=== PATIENT | female | born 1985 | race Caucasian/White ===

== ENCOUNTER 2020-08-10 12:45 | Inpatient (IN) | payer SELFPAY, MEDICAID ==
[2020-08-10] MEDS ORDERED: SODIUM CHLORIDE 0.9% 1000 ML 1,000 ML IV ONE ×2 (13:33→15:57)
[2020-08-10] MEDS ORDERED: ONDANSETRON 4 MG/2 ML INJ IV ONE (13:33)
[2020-08-10] MEDS ORDERED: KETOROLAC 30 MG/1 ML INJ IV ONE (13:34)
--- NOTE | 2020-08-10 13:44 | Emergency Department Report ---
HPI <MAXIMILIAN SCOTT Shani - Last Filed: 08/10/20 18:15> - [facility] HPI: This is a 35-year-old female who presents to the emergency department with complaint of nausea with vomiting, body aches, and a fever despite treatment with antipyretics. The patient was at [place] emergency department on 08/06 for some upper respiratory type symptoms and was tested for COVID-19 at that time and discharged home. The results came back 2 days later as positive. Patient says that she has been taking Tylenol, ibuprofen, and took a dose of Coricidin but it has not helped with the fever. The patient presents with a fever of 103 F. She took Tylenol a few hours prior to presentation today and last took ibuprofen yesterday. She has a past medical history that includes hypertension, asthma, fibromyalgia. No recent travel or sick contacts at home. <MENA MEJIA S - Last Filed: 08/11/20 06:04> - General Chief Complaint: Nausea/Vomiting/Diarrhea Time Seen by Provider: 08/10/20 13:35 ED Past Medical Hx - Past Medical History Hx Hypertension: Yes Hx Asthma: Yes - Social History Smoking Status: Never Smoker Substance Use Type: None <MENA MEJIA S - Last Filed: 08/11/20 06:04> ED Review of Systems ROS: Stated complaint: COVID, VOMITING NAUSEA Other details as noted in HPI <MAXIMILIAN SCOTT Shani - Last Filed: 08/10/20 18:15> ROS: Stated complaint: COVID, VOMITING NAUSEA Other details as noted in HPI Constitutional: chills, fever Eyes: denies: eye pain, vision change ENT: denies: ear pain, throat pain Respiratory: cough, shortness of breath Cardiovascular: denies: chest pain, palpitations Gastrointestinal: abdominal pain, nausea, vomiting Genitourinary: denies: dysuria, discharge Musculoskeletal: myalgia. denies: joint swelling Skin: denies: rash, lesions Neurological: denies: weakness, numbness <MENA MEJIA S - Last Filed: 08/11/20 06:04> Physical Exam - Physical Exam Vital Signs: Vital Signs 08/10/20 08/10/20 08/10/20 13:17 14:39 17:13 Temperature 103.2 F H 100.0 F H Pulse Rate 98 H 87 72 Respiratory 20 18 21 Rate Blood Pressure 121/71 Blood Pressure 100/61 113/66 [Left] O2 Sat by Pulse 93 98 99 Oximetry <MAXIMILIAN SCOTT - Last Filed: 08/10/20 18:15> - Physical Exam Vital Signs: Vital Signs 08/10/20 13:17 Temperature 103.2 F H Pulse Rate 98 H Respiratory 20 Rate Blood Pressure 121/71 O2 Sat by Pulse 93 Oximetry Physical Exam: GENERAL: The patient is well-developed well-nourished. HENT: Normocephalic. Atraumatic. Patient has moist mucous membranes. EYES: Extraocular motions are intact. NECK: Supple. Trachea is midline. CHEST/LUNGS: Clear to auscultation. There is no respiratory distress noted. HEART/CARDIOVASCULAR: Regular. There is mild tachycardia. There is no murmur. ABDOMEN: Abdomen is soft, nontender. Patient has normal bowel sounds. Obese habitus. SKIN: Skin is warm and dry. NEURO: The patient is awake, alert, and oriented. The patient is cooperative. The patient has no focal neurologic deficits. Normal speech. MUSCULOSKELETAL: There is no tenderness or deformity. There is no limitation range of motion. <MENA MEJIA S - Last Filed: 08/11/20 06:04> ED Course Vital Signs 08/10/20 08/10/20 08/10/20 13:17 14:39 17:13 Temperature 103.2 F H 100.0 F H Pulse Rate 98 H 87 72 Respiratory 20 18 21 Rate Blood Pressure 121/71 Blood Pressure 100/61 113/66 [Left] O2 Sat by Pulse 93 98 99 Oximetry - Reevaluation(s) Reevaluation #1: 08/10/20 18:33 Patient's 2-minute walking SPO2 dropped to 89-91% on room air. Will admit the patient to the hospital for further management <MAXIMILIAN SCOTT - Last Filed: 08/10/20 18:15> Vital Signs 08/10/20 13:17 Temperature 103.2 F H Pulse Rate 98 H Respiratory 20 Rate Blood Pressure 121/71 O2 Sat by Pulse 93 Oximetry <MEAN MEJIA - Last Filed: 08/11/20 06:04> ED Medical Decision Making - Lab Data Result diagrams: 08/10/20 14:21 08/10/20 14:21 <MAXIMILIAN SCOTT - Last Filed: 08/10/20 18:15> - Lab Data Result diagrams: 08/10/20 14:21 08/10/20 18:34 - Radiology Data Radiology results: image reviewed interpreted by me: Chest x-ray does not show any acute process. There are no pleural effusions, obvious pneumonia and there is no pneumothorax. No widened mediastinum. Abdominal x-ray shows nonspecific nonobstructive bowel gas. No free air. - Medical Decision Making This patient presents to the emergency department with a complaint of fever, nausea, vomiting, occasional shortness of breath and cough. She is known to be Covid positive since 08/04. Chest x-ray does not show any obvious pneumonia, pleural effusions, pneumothorax, widened mediastinum. Abdominal x-ray shows nonspecific nonobstructive bowel gas. I am waiting for all of the labs to return, but the metabolic panel is mostly unremarkable except for slight elevation in the AST level. So far the patient has been given a liter of IV fluid, a dose of Zofran, and a dose of Toradol. The patient will receive another liter of IV fluid and will be given a dose of Reglan. This patient will be signed out to my colleague, Dr. Scott, to continue resuscitation and assist with disposition. 08/11/20 6AM: In reviewing the rest of the chart, I can see that the patient did not pass the 2-minute oxygen ambulation test as her pulse ox dropped down to as low as 88%. The patient was admitted to the hospital for further evaluation and treatment. <MENA MEJIA S - Last Filed: 08/11/20 06:04> Critical care attestation.: If time is entered above; I have spent that time in minutes in the direct care of this critically ill patient, excluding procedure time. <MAXIMILIAN SCOTT - Last Filed: 08/10/20 18:15> Critical Care Time: No Critical care attestation.: If time is entered above; I have spent that time in minutes in the direct care of this critically ill patient, excluding procedure time. <MENA MEJIA - Last Filed: 08/11/20 06:04> ED Disposition Is pt being admited?: Yes Does the pt Need Aspirin: No Time of Disposition: 18:34 (Hospitalist notified (Dr. Benitez)) <MAXIMILIAN SCOTT - Last Filed: 08/10/20 18:15> Is pt being admited?: Yes <MENA MEJIA - Last Filed: 08/11/20 06:04> Clinical Impression: COVID-19, Viral syndrome, Nausea & vomiting, Hypoxia Disposition: [facility]-09 OP ADMIT IP TO THIS HOSP Condition: Fair
[2020-08-10 15:03] LABS: Alanine Aminotransferase 32 units/L (7-56); Albumin 3.6 g/dL (3.9-5); BUN/Creatinine Ratio 11; Blood Urea Nitrogen 9 mg/dL (7-17); Calcium 8.9 mg/dL (8.4-10.2); Hemolysis Index 14
[2020-08-10 15:05] LABS: Hematocrit 37.8 % (30.3-42.9); Mean Corpuscular HGB Conc 34 % (30-34); Mean Corpuscular Volume 91 fl (79-97); Red Blood Count 4.15 M/mm3 (3.65-5.03); Red Cell Distribution Width 13.5 % (13.2-15.2)
[2020-08-10] MEDS ORDERED: METOCLOPRAMIDE 10 MG/2 ML INJ IV ONE (15:57)
--- NOTE | 2020-08-10 16:12 | XRay Report ---
Abdominal series with chest x-ray one view HISTORY: Cough, abdominal pain COMPARISON: None. IMPRESSION: Single view of the chest demonstrates clear lungs. Heart size is at the upper limits of n ormal. No infiltrate, pleural fluid or pneumothorax. Supine and upright views the abdomen demonstrate an unremarkable intestinal gas pattern. No evidence for obstruction or free air. No pathologic calcifications are detected. Signer Name: El Godinez Jr, MD Signed: 08/10/2020 4:08 PM Workstation Name: [id number]
[2020-08-10] MEDS ORDERED: ACETAMINOPHEN 500 MG TAB PO ONE (16:57)
[2020-08-10 16:59] LABS: Total Cells Counted 100
[2020-08-10 17:00] LABS: Anisocytosis RARE; Hypochromasia Few; Platelet Clumps Rare
[2020-08-10 17:02] LABS: Platelet Count 186 K/mm3 (140-440)
[2020-08-10] MEDS ORDERED: dexAMETHasone 20 MG/5 ML VIAL IV ONE (18:08)
[2020-08-10] MEDS ORDERED: cefTRIAXone/NS 1 GM/50 ML 1 GM/50 ML BAG IV ONE (18:09)
[2020-08-10] MEDS ORDERED: AZITHROMYCIN/NS 500 MG/250 ML 500 MG/250 ML BAG IV ONE (18:09)
[2020-08-10 18:15] LABS: Bacteria,Urine 1+ /HPF (Negative); Bilirubin,Urine NEG (Negative); Blood,Urine LG (Negative); Color,Urine Yellow (Yellow); Mucus,Urine FEW /HPF; Protein,Urine <15 mg/dL mg/dL (Negative); Urobilinogen,Urine < 2.0 mg/dL (<2.0)
[2020-08-10 19:10] LABS: C-Reactive Protein 2.2 mg/dL (0.00-1.30)
[2020-08-10] MEDS ORDERED: MORPHINE 2 MG/1 ML INJ IV PRN (21:38)
--- NOTE | 2020-08-10 21:58 | History and Physical Report ---
History of Present Illness Date of examination: 08/10/20 Date of admission: 08/10/20 18:34 Chief complaint: Fever body aches and nausea vomiting for 4 days High temperature 103 prior to admission to the emergency room History of present illness: 35-year-old female with past medical history of hypertension and asthma comes to the emergency room because of nausea vomiting body aches and fever for the last 3 to 4 days. Patient went to [place] emergency department and was treated as upper respiratory symptoms with antibiotics. Patient was stable tested for COVID-19 which became positive later. Here the patient presents with a fever of 103 and she took Tylenol, a few hours before arrival in the emergency room. She took ibuprofen yesterday. No recent travels. Patient is not vaccinated. Exposure to coronavirus present. In the emergency room patient is to 88% on ambulation. No chest pain. Some shortness of breath present. No diaphoresis. Covid test came positive about days ago. - Past Medical History Hx Hypertension: Yes Hx Asthma: Yes Surgical history n/a Family history HTN - Social History Smoking Status: Never Smoker Substance Use Type: None <MENA MEJIA - Last Filed: 08/10/20 16:00> Review of Systems ROS: Constitutional fever and generalized body aches Neck no neck stiffness no lymph gland enlargement Chest and lungs no shortness of breath cough or wheezing CVS no chest pain no diaphoresis no palpitations GI no nausea no vomiting no diarrhea Genitourinary system nausea vomiting. Musculoskeletal system no muscle pains no joint pains [employer] no syncope no seizures Skin no rash no itching Psychiatric no depression no homicidal or suicidal tendencies Hematologic no lymphedema or bruising Endocrine no polydipsia no polyuria no cold intolerance no heat intolerance Positive Covid test 08/06/2020 Medications and Allergies Allergies Allergy/AdvReac Type Severity Reaction Status Date / Time morphine Allergy Hives Verified 08/10/20 13:24 Exam - Constitutional Vitals: Temp Pulse Resp BP Pulse Ox 99.9 F H 75 18 108/70 98 08/10/20 21:29 08/10/20 21:29 08/10/20 21:29 08/10/20 21:29 08/10/20 21:29 General appearance: Present: no acute distress, well-nourished - EENT Eyes: Present: PERRL ENT: hearing intact, clear oral mucosa - Neck Neck: Present: supple, normal ROM - Respiratory Respiratory effort: normal Respiratory: bilateral: CTA, rhonchi - Cardiovascular Heart rate: 78 Rhythm: regular Heart Sounds: Present: S1 & S2. Absent: rub, click - Extremities Extremities: pulses symmetrical, No edema Peripheral Pulses: within normal limits - Abdominal General gastrointestinal: Present: soft, non-tender, non-distended, normal bowel sounds Female genitourinary: Present: normal - Integumentary Integumentary: Present: clear, warm, dry - Musculoskeletal Musculoskeletal: gait normal, strength equal bilaterally - Psychiatric Psychiatric: appropriate mood/affect, intact judgment & insight - Neurologic Neurologic: CNII-XII intact, moves all extremities - Allied Health Allied health notes reviewed: nursing, case management Results - Labs CBC & Chem 7: 08/10/20 14:21 08/10/20 18:34 Labs: Laboratory Last Values WBC 5.1 K/mm3 (4.5-11.0) 08/10/20 14:21 RBC 4.15 M/mm3 (3.65-5.03) 08/10/20 14:21 Hgb 13.0 gm/dl (10.1-14.3) 08/10/20 14:21 Hct 37.8 % (30.3-42.9) 08/10/20 14:21 MCV 91 fl (79-97) 08/10/20 14:21 MCH 31 pg (28-32) 08/10/20 14:21 MCHC 34 % (30-34) 08/10/20 14:21 RDW 13.5 % (13.2-15.2) 08/10/20 14:21 Plt Count 186 K/mm3 (140-440) 08/10/20 14:21 Add Manual Diff Complete 08/10/20 14:21 Total Counted 100 08/10/20 14:21 Seg Neuts % (Manual) 62.0 % (40.0-70.0) 08/10/20 14:21 Lymphocytes % (Manual) 26.0 % (13.4-35.0) 08/10/20 14:21 Monocytes % (Manual) 12.0 % (0.0-7.3) H 08/10/20 14:21 Nucleated RBC % 2.0 % (0.0-0.9) H 08/10/20 14:21 Seg Neutrophils # Man 0.0 K/mm3 (1.8-7.7) L 08/10/20 14:21 Band Neutrophils # 0.0 K/mm3 08/10/20 14:21 Lymphocytes # (Manual) 0.0 K/mm3 (1.2-5.4) L 08/10/20 14:21 Abs React Lymphs (Man) 0.0 K/mm3 08/10/20 14:21 Monocytes # (Manual) 0.0 K/mm3 (0.0-0.8) 08/10/20 14:21 Eosinophils # (Manual) 0.0 K/mm3 (0.0-0.4) 08/10/20 14:21 Basophils # (Manual) 0.0 K/mm3 (0.0-0.1) 08/10/20 14:21 Metamyelocytes # 0.0 K/mm3 08/10/20 14:21 Myelocytes # 0.0 K/mm3 08/10/20 14:21 Promyelocytes # 0.0 K/mm3 08/10/20 14:21 Blast Cells # 0.0 K/mm3 08/10/20 14:21 WBC Morphology Not Reportable 08/10/20 14:21 Hypersegmented Neuts Not Reportable 08/10/20 14:21 Hyposegmented Neuts Not Reportable 08/10/20 14:21 Hypogranular Neuts Not Reportable 08/10/20 14:21 Smudge Cells Not Reportable 08/10/20 14:21 Toxic Granulation Not Reportable 08/10/20 14:21 Toxic Vacuolation Not Reportable 08/10/20 14:21 Dohle Bodies Not Reportable 08/10/20 14:21 Pelger-Huet Anomaly Not Reportable 08/10/20 14:21 Geraldo Rods Not Reportable 08/10/20 14:21 Platelet Estimate Not Reportable 08/10/20 14:21 Clumped Platelets Rare 08/10/20 14:21 Plt Clumps, EDTA Not Reportable 08/10/20 14:21 Large Platelets Not Reportable 08/10/20 14:21 Giant Platelets Not Reportable 08/10/20 14:21 Platelet Satelliting Not Reportable 08/10/20 14:21 Plt Morphology Comment Not Reportable 08/10/20 14:21 RBC Morphology Not Reportable 08/10/20 14:21 Dimorphic RBCs Not Reportable 08/10/20 14:21 Polychromasia Not Reportable 08/10/20 14:21 Hypochromasia Few 08/10/20 14:21 Poikilocytosis Not Reportable 08/10/20 14:21 Anisocytosis Rare 08/10/20 14:21 Microcytosis Rare 08/10/20 14:21 Macrocytosis Not Reportable 08/10/20 14:21 Spherocytes Not Reportable 08/10/20 14:21 Pappenheimer Bodies Not Reportable 08/10/20 14:21 Sickle Cells Not Reportable 08/10/20 14:21 Target Cells Not Reportable 08/10/20 14:21 Tear Drop Cells Not Reportable 08/10/20 14:21 Ovalocytes Not Reportable 08/10/20 14:21 Helmet Cells Not Reportable 08/10/20 14:21 [place] Bodies Not Reportable 08/10/20 14:21 [place] Rings Not Reportable 08/10/20 14:21 [place] Cells Not Reportable 08/10/20 14:21 Bite Cells Not Reportable 08/10/20 14:21 Crenated Cell Not Reportable 08/10/20 14:21 Elliptocytes Not Reportable 08/10/20 14:21 Acanthocytes (Spur) Not Reportable 08/10/20 14:21 Rouleaux Not Reportable 08/10/20 14:21 Hemoglobin C Crystals Not Reportable 08/10/20 14:21 Schistocytes Not Reportable 08/10/20 14:21 Malaria parasites Not Reportable 08/10/20 14:21 Ignacio Bodies Not Reportable 08/10/20 14:21 Hem Pathologist Commnt No 08/10/20 14:21 D-Dimer 653.51 ng/mlDDU (0-234) H 08/10/20 18:34 Sodium 132 mmol/L (137-145) L 08/10/20 14:21 Potassium 4.6 mmol/L (3.6-5.0) 08/10/20 14:21 Chloride 95.9 mmol/L (98-107) L 08/10/20 14:21 Carbon Dioxide 25 mmol/L (22-30) 08/10/20 14:21 Anion Gap 16 mmol/L 08/10/20 14:21 BUN 9 mg/dL (7-17) 08/10/20 14:21 Creatinine 0.8 mg/dL (0.6-1.2) 08/10/20 14:21 Estimated GFR > 60 ml/min 08/10/20 14:21 BUN/Creatinine Ratio 11 % 08/10/20 14:21 Glucose 77 mg/dL (65-100) 08/10/20 18:34 Calcium 8.9 mg/dL (8.4-10.2) 08/10/20 14:21 Ferritin 143.9 ng/mL (10.0-200.0) 08/10/20 18:34 Total Bilirubin 0.20 mg/dL (0.1-1.2) 08/10/20 14:21 AST 59 units/L (5-40) H 08/10/20 14:21 ALT 32 units/L (7-56) 08/10/20 14:21 Alkaline Phosphatase 51 units/L (35-129) 08/10/20 14:21 Lactate Dehydrogenase 340 units/L (91-180) H 08/10/20 18:34 C-Reactive Protein 2.20 mg/dL (0.00-1.30) H 08/10/20 18:34 Total Protein 6.5 g/dL (6.3-8.2) 08/10/20 14:21 Albumin 3.6 g/dL (3.9-5) L 08/10/20 14:21 Albumin/Globulin Ratio 1.2 % 08/10/20 14:21 Lipase 27 units/L (13-60) 08/10/20 14:21 HCG, Qual Negative (Negative) 08/10/20 14:21 Urine Color Yellow (Yellow) 08/10/20 Unknown Urine Turbidity Slightly-cloudy (Clear) 08/10/20 Unknown Urine pH 6.0 (5.0-7.0) 08/10/20 Unknown Ur Specific [place] 1.010 (1.003-1.030) 08/10/20 Unknown Urine Protein <15 mg/dl mg/dL (Negative) 08/10/20 Unknown Urine Glucose (UA) Neg mg/dL (Negative) 08/10/20 Unknown Urine Ketones Tr mg/dL (Negative) 08/10/20 Unknown Urine Blood Lg (Negative) 08/10/20 Unknown Urine Nitrite Neg (Negative) 08/10/20 Unknown Urine Bilirubin Neg (Negative) 08/10/20 Unknown Urine Urobilinogen < 2.0 mg/dL (<2.0) 08/10/20 Unknown Ur Leukocyte Esterase Sm (Negative) 08/10/20 Unknown Urine WBC (Auto) 3.0 /HPF (0.0-6.0) 08/10/20 Unknown Urine RBC (Auto) 7.0 /HPF (0.0-6.0) 08/10/20 Unknown U Epithel Cells (Auto) 4.0 /HPF (0-13.0) 08/10/20 Unknown Urine Bacteria (Auto) 1+ /HPF (Negative) 08/10/20 Unknown Urine Mucus Few /HPF 08/10/20 Unknown Microbiology: Microbiology 08/10/20 18:37 Peripheral/Venous Blood Culture - Preliminary Culture in Progress 08/10/20 18:34 Peripheral/Venous Blood Culture - Preliminary Culture in Progress - Imaging and Cardiology Imaging and Cardiology: Chest x-ray Single view of the chest demonstrates clear lungs Heart size is normal upper limits no infiltrate pleural fluid or pneumothorax Assessment and Plan Advance Directives: Yes (Full code) VTE prophylaxis?: Chemical Plan of care discussed with patient/family: Yes - Patient Problems (1) Respiratory failure with hypoxia Current Visit: Yes Status: Acute Qualifiers: Chronicity: acute Qualified Code(s): J96.01 - Acute respiratory failure with hypoxia Plan to address problem: Especially on ambulation Sats are 88% on ambulation 2 L nasal cannula oxygen to continue (2) COVID-19 Current Visit: Yes Status: Acute Plan to address problem: Patient initiated on IV Zithromax and IV Rocephin and IV Decadron Repeat coronavirus PCR ID consult if PCR is positive (3) Viral syndrome Current Visit: Yes Status: Acute Plan to address problem: Symptomatic treatment (4) Hypertension Current Visit: Yes Status: Chronic Qualifiers: Hypertension type: primary hypertension Qualified Code(s): I10 - Essential (primary) hypertension Plan to address problem: Continue antihypertensives and adjust medications as necessary (5) Asthma Current Visit: Yes Status: Inactive Plan to address problem: Bronchodilators as necessary (6) DVT prophylaxis Current Visit: Yes Status: Acute Plan to address problem: On Lovenox and GI prophylaxis
[2020-08-10] MEDS: FAMOTIDINE 20 MG/2 ML INJ IV SCH (23:19)
[2020-08-11] MEDS: oxyCODONE /ACETAMINOPHEN 5-325MG TAB PO PRN (06:14)
[2020-08-11 07:02] LABS: Hematocrit 37.5 % (30.3-42.9); Hemoglobin 12.6 gm/dl (10.1-14.3); Mean Corpuscular HGB Conc 34 % (30-34); Mean Corpuscular Volume 91 fl (79-97); Platelet Count 188 K/mm3 (140-440); Red Blood Count 4.14 M/mm3 (3.65-5.03); Red Cell Distribution Width 13.4 % (13.2-15.2)
[2020-08-11 07:20] LABS: Alanine Aminotransferase 39 units/L (7-56); Albumin 3.6 g/dL (3.9-5); BUN/Creatinine Ratio 13; Blood Urea Nitrogen 10 mg/dL (7-17); Calcium 8.6 mg/dL (8.4-10.2); Hemolysis Index 1
[2020-08-11] MEDS: FAMOTIDINE 20 MG/2 ML INJ IV SCH ×2 (09:12→21:41)
[2020-08-11] MEDS: ENOXAPARIN 40 MG/0.4 ML INJ SUB-Q SCH (09:12)
--- NOTE | 2020-08-11 09:28 | Progress Note ---
Subjective Date of service: 08/11/20 Interval history: Fever body aches and nausea vomiting for 4 days High temperature 103 prior to admission to the emergency room History of present illness: 35-year-old female with past medical history of hypertension and asthma comes to the emergency room because of nausea vomiting body aches and fever for the last 3 to 4 days. Patient went to [place] emergency department and was treated as upper respiratory symptoms with antibiotics. Patient was stable tested for COVID-19 which became positive later. Here the patient presents with a fever of 103 and she took Tylenol, a few hours before arrival in the emergency room. She took ibuprofen yesterday. No recent travels. Patient is not vaccinated. Exposure to coronavirus present. In the emergency room patient is to 88% on ambulation. No chest pain. Some shortness of breath present. No diaphoresis. Covid test came positive about days ago. 08/11 patient is alert and oriented, not in any distress, no specific complaints except dry cough, fever trending down and she is afebrile this morning, denies shortness of breath, denies headache, dizziness, chest pain, nausea or abdominal pain. Lab results reviewed Assessment and plan COVID-19 infection Chest x-ray reviewed Inflammatory markers reviewed Continue Decadron and remdesivir Continue empiric IV antibiotics Procalcitonin ordered-results pending Start Lovenox for DVT prophylaxis Proning as able Hypoxia Continue oxygen via nasal cannula Oxygen saturation 95 to 98% Leukopenia-differential pending Likely secondary to viral induced Monitor CBC We will request ID consult Hyponatremia Improved Fever Trending down well and this morning she is afebrile Hypertension Fair Continue present medications History of asthma-not in exacerbation Continue albuterol inhaler as needed Morbid obesity Counseling on diet, weight loss and exercise was done Objective - Constitutional Vitals: Vital Signs - 12hr 08/10/20 08/11/20 21:29 05:01 Temperature 99.9 F H 97.7 F Pulse Rate 75 Respiratory 18 18 Rate Blood Pressure 108/70 105/67 O2 Sat by Pulse 98 Oximetry General appearance: Present: no acute distress, obese - EENT Eyes: PERRL, EOM intact ENT: hearing intact, clear oral mucosa - Neck Neck: supple, normal ROM - Respiratory Respiratory effort: normal Respiratory: bilateral: CTA - Cardiovascular Rhythm: regular Heart Sounds: Present: S1 & S2 Extremities: No edema - Gastrointestinal General gastrointestinal: Present: soft, non-tender Rectal Exam: deferred - Genitourinary Female genitourinary: deferred - Integumentary Integumentary: clear, warm - Musculoskeletal Musculoskeletal: strength equal bilaterally - Neurologic Neurologic: no focal deficits - Psychiatric Psychiatric: appropriate mood/affect - Labs CBC & Chem 7: 08/11/20 06:22 07 06:22 Labs: Abnormal lab results 08/10/20 08/10/20 08/10/20 Range/Units 14:21 14:21 18:34 WBC (4.5-11.0) K/mm3 Monocytes % (Manual) 12.0 H (0.0-7.3) % Nucleated RBC % 2.0 H (0.0-0.9) % Seg Neutrophils # Man 0.0 L (1.8-7.7) K/mm3 Lymphocytes # (Manual) 0.0 L (1.2-5.4) K/mm3 D-Dimer 653.51 H (0-234) ng/mlDDU Sodium 132 L (137-145) mmol/L Chloride 95.9 L (98-107) mmol/L Glucose (65-100) mg/dL AST 59 H (5-40) units/L Lactate Dehydrogenase (91-180) units/L C-Reactive Protein (0.00-1.30) mg/dL Albumin 3.6 L (3.9-5) g/dL 08/10/20 08/11/20 08/11/20 Range/Units 18:34 06:22 06:22 WBC 1.6 L* (4.5-11.0) K/mm3 Monocytes % (Manual) (0.0-7.3) % Nucleated RBC % (0.0-0.9) % Seg Neutrophils # Man (1.8-7.7) K/mm3 Lymphocytes # (Manual) (1.2-5.4) K/mm3 D-Dimer (0-234) ng/mlDDU Sodium (137-145) mmol/L Chloride (98-107) mmol/L Glucose 140 H (65-100) mg/dL AST 61 H (5-40) units/L Lactate Dehydrogenase 340 H (91-180) units/L C-Reactive Protein 2.20 H (0.00-1.30) mg/dL Albumin 3.6 L (3.9-5) g/dL
[2020-08-11] MEDS: carvediloL 3.125 MG TAB PO SCH ×2 (11:14→21:40)
[2020-08-11 12:04] LABS: Total Cells Counted 100
[2020-08-11 12:06] LABS: Platelet Estimate Consistent w Auto; RBC Morphology Normal
[2020-08-11] MEDS ORDERED: POLYETHYLENE GLYCOL 3350 17 GM POWDER PO PRN (13:53)
[2020-08-11] MEDS ORDERED: NON-FORMULARY EACH (Ascorbic Acid [Vitamin C] 1,000 MG Tablet) PO SCH (17:00)
[2020-08-11] MEDS: ASCORBIC ACID 500 MG TAB PO SCH (17:41)
[2020-08-11] MEDS: CHOLECALCIFEROL (VIT D3) 1000 UNIT (25 mcg) TAB PO SCH (17:41)
[2020-08-11] MEDS: dexAMETHasone 4 MG/ML VIAL IV SCH (17:41)
[2020-08-11] MEDS ORDERED: AZITHROMYCIN/NS 500 MG/250 ML 500 MG/250 ML BAG IV SCH (18:00)
[2020-08-11] MEDS ORDERED: cefTRIAXone/NS 2 GM/100 ML 2 GM/100 ML BAG IV SCH (18:00)
[2020-08-11] MEDS: ACETAMINOPHEN 325 MG TAB PO PRN (21:40)
[2020-08-11] MEDS: guaiFENesin 100 MG/5 ML ORAL LIQD PO PRN (21:40)
[2020-08-12 07:32] LABS: Basophils % (Auto) 0.2 % (0.0-1.8); Hematocrit 36.4 % (30.3-42.9); Hemoglobin 12.4 gm/dl (10.1-14.3); Lymphocytes # (Auto) 0.6 K/mm3 (1.2-5.4); Lymphocytes % (Auto) 14.3 % (13.4-35.0); Mean Corpuscular HGB Conc 34 % (30-34); Mean Corpuscular Volume 91 fl (79-97); Monocytes # (Auto) 0.2 K/mm3 (0.0-0.8); Platelet Count 193 K/mm3 (140-440); Red Cell Distribution Width 13.1 % (13.2-15.2)
[2020-08-12 07:51] LABS: Alanine Aminotransferase 41 units/L (7-56); Albumin 3.6 g/dL (3.9-5); Blood Urea Nitrogen 10 mg/dL (7-17); Calcium 8.8 mg/dL (8.4-10.2); Hemolysis Index 2
[2020-08-12 07:53] LABS: BUN/Creatinine Ratio 14
[2020-08-12] MEDS: POLYETHYLENE GLYCOL 3350 17 GM POWDER PO SCH (09:42)
[2020-08-12] MEDS: carvediloL 3.125 MG TAB PO SCH ×2 (09:44→21:46)
[2020-08-12] MEDS: ASCORBIC ACID 500 MG TAB PO SCH (09:44)
[2020-08-12] MEDS: FAMOTIDINE 20 MG/2 ML INJ IV SCH ×2 (09:45→21:46)
[2020-08-12] MEDS: CHOLECALCIFEROL (VIT D3) 1000 UNIT (25 mcg) TAB PO SCH (09:45)
[2020-08-12] MEDS: ENOXAPARIN 40 MG/0.4 ML INJ SUB-Q SCH (09:45)
[2020-08-12] MEDS ORDERED: REMDESIVIR(see order set) IV SCH (10:00)
[2020-08-12] MEDS: guaiFENesin 100 MG/5 ML ORAL LIQD PO PRN (10:00)
--- NOTE | 2020-08-12 10:30 | Progress Note ---
Subjective Date of service: 08/12/20 Interval history: Fever body aches and nausea vomiting for 4 days High temperature 103 prior to admission to the emergency room History of present illness: 35-year-old female with past medical history of hypertension and asthma comes to the emergency room because of nausea vomiting body aches and fever for the last 3 to 4 days. Patient went to [place] emergency department and was treated as upper respiratory symptoms with antibiotics. Patient was stable tested for COVID-19 which became positive later. Here the patient presents with a fever of 103 and she took Tylenol, a few hours before arrival in the emergency room. She took ibuprofen yesterday. No recent travels. Patient is not vaccinated. Exposure to coronavirus present. In the emergency room patient is to 88% on ambulation. No chest pain. Some shortness of breath present. No diaphoresis. Covid test came positive about days ago. 08/11 patient is alert and oriented, not in any distress, no specific complaints except dry cough, fever trending down and she is afebrile this morning, denies shortness of breath, denies headache, dizziness, chest pain, nausea or abdominal pain. Lab results reviewed 08/12 patient is alert and oriented, not in any acute distress, complains of persistent cough mostly dry, denies fever or chills, (has a low-grade fever ), denies shortness of breath or chest pain lab results reviewed. Assessment and plan COVID-19 infection Chest x-ray reviewed Inflammatory markers reviewed Continue Decadron Initiated remdesivir therapy ID consulted/evaluation pending . Antibiotic discontinued as procalcitonin is in the normal range Continue Lovenox for DVT prophylaxis but will change to twice daily Proning as able Persistent cough Secondary to Covid 19 pneumonia Add Tariq villa and Fidelia-DM cough syrup Hypoxia Continue oxygen via nasal cannula Oxygen saturation 95 to 98% Leukopenia-improved WBC count went up from 1.6-4.4 this morning Likely viral induced No evidence of sepsis Monitor CBC Hyponatremia Improved Fever Trending down Temp 99.9 this morning Hypertension Fair Continue present medications History of asthma-not in exacerbation Continue albuterol inhaler as needed Morbid obesity Counseling on diet, weight loss and exercise was done Objective - Constitutional Vitals: Vital Signs - 12hr 08/12/20 08/12/20 08/12/20 04:48 08:00 09:44 Temperature 97.5 F L Pulse Rate 66 82 Pulse Rate [ 82 From Monitor] Respiratory 20 17 Rate Respiratory Rate [Chest] Blood Pressure 136/79 143/80 O2 Sat by Pulse 95 96 Oximetry 08/12/20 10:00 Temperature Pulse Rate Pulse Rate [ From Monitor] Respiratory Rate Respiratory 18 Rate [Chest] Blood Pressure O2 Sat by Pulse Oximetry General appearance: Present: no acute distress - EENT Eyes: PERRL, EOM intact ENT: hearing intact, clear oral mucosa - Neck Neck: supple, normal ROM - Respiratory Respiratory effort: normal Respiratory: bilateral: CTA - Cardiovascular Rhythm: regular Heart Sounds: Present: S1 & S2 Extremities: No edema - Gastrointestinal General gastrointestinal: Present: soft Rectal Exam: deferred - Genitourinary Female genitourinary: deferred - Integumentary Integumentary: clear - Musculoskeletal Musculoskeletal: strength equal bilaterally - Neurologic Neurologic: no focal deficits - Psychiatric Psychiatric: appropriate mood/affect - Labs CBC & Chem 7: 08/12/20 06:23 08/12/20 06:23 Labs: Abnormal lab results 08/11/20 08/11/20 08/12/20 Range/Units 06:22 09:20 06:23 WBC 4.4 L (4.5-11.0) K/mm3 RDW 13.1 L (13.2-15.2) % Lymph # (Auto) 0.6 L (1.2-5.4) K/mm3 Seg Neutrophils % 80.5 H (40.0-70.0) % Seg Neuts % (Manual) 71.0 H (40.0-70.0) % Seg Neutrophils # Man 1.1 L (1.8-7.7) K/mm3 Lymphocytes # (Manual) 0.5 L (1.2-5.4) K/mm3 Glucose (65-100) mg/dL AST (5-40) units/L Lactate Dehydrogenase (91-180) units/L Albumin (3.9-5) g/dL Coronavirus (PCR) Positive A (Negative) 08/12/20 Range/Units 06:23 WBC (4.5-11.0) K/mm3 RDW (13.2-15.2) % Lymph # (Auto) (1.2-5.4) K/mm3 Seg Neutrophils % (40.0-70.0) % Seg Neuts % (Manual) (40.0-70.0) % Seg Neutrophils # Man (1.8-7.7) K/mm3 Lymphocytes # (Manual) (1.2-5.4) K/mm3 Glucose 121 H (65-100) mg/dL AST 55 H (5-40) units/L Lactate Dehydrogenase 328 H (91-180) units/L Albumin 3.6 L (3.9-5) g/dL Coronavirus (PCR) (Negative)
[2020-08-12] MEDS: guaiFENesin DM 200/20 MG ORAL LIQD 10 ML PO SCH ×3 (11:53→22:09)
--- NOTE | 2020-08-12 13:29 | Consultation ---
History of Present Illness - Reason for Consult Consult date: 08/12/20 COVID-19 pneumonia Requesting physician: DENI DEAN - History of Present Illness 35-year-old female with morbid obesity, hypertension, asthma, admitted on 08/10/2020 secondary to a week history of generalized malaise, body aches, cough and shortness of breath. Patient was initially to the ED and was treated for bronchitis with antibiotics. COVID-19 test was positive on 09/05/2020. On arrival, temperature 103.2, HR 98, RR 20, O2 sat 93%, BP 121/71. Initial WBC 5.1. Hemoglobin 13. Platelets 186. Creatinine 0.8. AST 59, ALT 32. D-dimer 653. CRP 2.2. Procalcitonin<0.05. Urinalysis with small leukocytes. SARS-CoV-2 PCR was positive. Blood cultures no growth today. Chest x-ray shows clear lungs. In the ED O2 sat dropped to 88% on ambulation. Patient is currently on 3 L nasal cannula. Review of Systems: positive in bold print General: fever, chills, malaise Cutaneous: rash, pruritus Head: headaches or injury Eyes: changes in vision, eye pain, double vision Ears: ear pain, ear discharge, ringing or hearing loss Nose: nose bleeding, stuffiness Mouth & throat: bleeding gums, horseness, no dental problems, or swollen glands Neck: no pain, node enlargement/lumps, tyroid enlargement or tenderness Respiratory: SOB, cough, NOVAK, wheezing, sputum, hemoptysis, pleuritic chest pain Cardiovascular: chest pain, leg edema, cyanosis, NOVAK, orthopnea Musculoskeletal: edema, deformities, pain Gastrointestinal: nausea, vomiting, hematemesis, diarrhea, constipation, melena, bright red blood in stools, fecal incontinence, jaundice Genitourinary/Reproductive: frequent urination, dysuria, hematuria, incontinence Neurogical: seizures, headaches, weakness, paresthesias, loss of speech or vision; memory loss, vertigo, tremors, numbness Psychiatric: stable mood; excessive anxiety, sadness or moodiness Medications and Allergies Allergies Allergy/AdvReac Type Severity Reaction Status Date / Time morphine Allergy Hives Verified 08/10/20 13:24 Home Medications Medication Instructions Recorded Confirmed Last Taken Type ALBUTEROL NEB's [Proventil 0.083% 2.5 mg IH TID PRN 08/11/20 08/11/20 Unknown History NEBS] Ascorbic Acid [Vitamin C] 1,000 mg PO DAILY 08/11/20 08/11/20 Unknown History Cholecalciferol Vit D3 [Vitamin D3 1,000 unit PO QDAY 08/11/20 08/11/20 Unknown History 1,000 UNIT TAB] Active Meds: Active Medications Acetaminophen (Acetaminophen 325 Mg Tab) 650 mg PO Q4H PRN PRN Reason: Pain MILD(1-3)/Fever >100.5/VILLANUEVA Last Admin: 08/11/20 21:40 Dose: 650 mg Documented by: Albuterol (Albuterol 2.5 Mg/3 Ml Nebu) 2.5 mg IH TID PRN PRN Reason: Wheezing Ascorbic Acid (Ascorbic Acid 500 Mg Tab) 1,000 mg PO QDAY [facility] Last Admin: 08/12/20 09:44 Dose: 1,000 mg Documented by: Benzonatate (Benzonatate 100 Mg Cap) 200 mg PO Q8HR [facility] Carvedilol (Carvedilol 3.125 Mg Tab) 3.125 mg PO BID [facility] Last Admin: 08/12/20 09:44 Dose: 3.125 mg Documented by: Cholecalciferol (Cholecalciferol (Vit D3) 1000 Unit (25 Mcg) Tab) 1,000 unit PO QDAY [facility] Last Admin: 08/12/20 09:45 Dose: 1,000 unit Documented by: Dexamethasone (Dexamethasone 4 Mg/Ml Vial) 8 mg IV Q24H [facility] Last Admin: 08/11/20 17:41 Dose: 8 mg Documented by: Enoxaparin Sodium (Enoxaparin 30 Mg/0.3 Ml Inj) 30 mg SUB-Q BID [facility]; Protocol Famotidine (Famotidine 20 Mg/2 Ml Inj) 20 mg IV BID [facility] Last Admin: 08/12/20 09:45 Dose: 20 mg Documented by: Guaifenesin (Guaifenesin Dm 200/20 Mg Oral Liqd 10 Ml) 10 ml PO Q6H [facility] Last Admin: 08/12/20 11:53 Dose: 10 ml Documented by: REMDESIVIR 200 mg/ Sodium (Chloride) 250 mls @ 500 mls/hr IV ONCE ONE Stop: 08/12/20 14:29 REMDESIVIR 100 mg/ Sodium (Chloride) 250 mls @ 500 mls/hr IV Q24HR@2100 [facility] Stop: 08/16/20 21:29 Ondansetron HCl (Ondansetron 4 Mg/2 Ml Inj) 4 mg IV Q8H PRN PRN Reason: Nausea And Vomiting Oxycodone/Acetaminophen (Oxycodone /Acetaminophen 5-325mg Tab) 1 tab PO Q6H PRN PRN Reason: Pain, Moderate (4-6) Last Admin: 08/11/20 06:14 Dose: 1 tab Documented by: Polyethylene Glycol (Polyethylene Glycol 3350 17 Gm Powder) 17 gm PO QDAY [facility] Last Admin: 08/12/20 09:42 Dose: 17 gm Documented by: Sodium Chloride (Sodium Chloride 0.9% 10 Ml Flush Syringe) 10 ml IV BID [facility] Last Admin: 08/12/20 09:45 Dose: 10 ml Documented by: Sodium Chloride (Sodium Chloride 0.9% 10 Ml Flush Syringe) 10 ml IV PRN PRN PRN Reason: LINE FLUSH Sodium Chloride (Sodium Chloride 0.9% 50 Ml Ivpb) 50 ml IV Q24HR@2100 [facility] Stop: 08/16/20 21:01 Sodium Chloride (Sodium Chloride 0.9% 50 Ml Ivpb) 50 ml IV ONCE NR Stop: 08/12/20 14:31 Physical Examination - Physical Exam Narrative exam: General appearance: Alert in mild respiratory distress Eyes: anicteric sclerae, moist conjunctivae; no lid-lag; PERRLA HENT: Normocephalic, Atraumatic; normal external ears, nares open, oropharynx clear Neck: supple, tracheal midline, no JVD Lungs: Bilateral scattered rhonchi CV: RRR no murmur Abdomen: Soft, non-tender; obese Extremities: no edema, no cyanosis Skin: No rash. Psych: no agitated Neuro: alert and oriented x 3. Moving all extermities - Constitutional Vitals: Vital Signs Temp Pulse Resp BP Pulse Ox 99.1 F 56 L 18 122/63 95 08/12/20 11:34 08/12/20 11:34 08/12/20 11:34 08/12/20 11:34 08/12/20 11:34 Temperature -Last 24 Hours Temperature 99.1 F Temperature 99.2 F Temperature 97.5 F Temperature 99.9 F Temperature 99.9 F Temperature 98.6 F Results - Labs CBC & Chem 7: 08/12/20 06:23 08/12/20 06:23 Labs: Abnormal lab results 08/11/20 08/12/20 08/12/20 Range/Units 09:20 06:23 06:23 WBC 4.4 L (4.5-11.0) K/mm3 RDW 13.1 L (13.2-15.2) % Lymph # (Auto) 0.6 L (1.2-5.4) K/mm3 Seg Neutrophils % 80.5 H (40.0-70.0) % Glucose 121 H (65-100) mg/dL AST 55 H (5-40) units/L Lactate Dehydrogenase 328 H (91-180) units/L Albumin 3.6 L (3.9-5) g/dL Coronavirus (PCR) Positive A (Negative) Assessment and Plan Cultures: Blood culture 08/10/2020 no growth today SARS-CoV-2 PCR positive Assessment: 35-year-old female with morbid obesity, hypertension, asthma, admitted on 08/10/2020 secondary to a week history of generalized malaise, body aches, cough and shortness of breath: #Sepsis: present on admission with fever, tachycardia, hypotension, secondary to COVID-19 infection. #Severe COVID-19 infection: Chest x-ray without any infiltrate however patient is morbidly obese limited technique. Inflammatory markers for COVID-19 elevated CRP 2.2, D-dimer 653, LDH 340, ferritin normal. Procalcitoninislow. #Elevated LFTs: Likely secondary to COVID-19. #Morbid obesity: Associated with worse outcomes #Neutropenia: Likely secondary to COVID-19 infection. Improving. Recommendations: -Continue dexamethasone 6 mg IV/PO daily for 10 days -Continue remdesivir for 5 days -Monitor inflammatory markers - ferritin, Ddimer, CRP, LDH, ordered today -Monitor liver function test on Remdesivir -Continue anticoagulation per System Protocol -Prone positioning as possible -No indication for antibiotics procalcitonin is low All laboratory, cultures and imaging were reviewed. Will follow. Loida Fleming MD Infectious Diseases [facility] ([facility]) M [phone] O [phone]
[2020-08-12] MEDS: BENZONATATE 100 MG CAP PO SCH ×2 (13:59→21:46)
[2020-08-12] MEDS ORDERED: REMDESIVIR 200 MG in SODIUM CHLORIDE 0.9% 250ML 250 ML IV ONE (14:00)
[2020-08-12] MEDS: PANTOPRAZOLE 40 MG TAB PO SCH (14:00)
[2020-08-12] MEDS: ALBUTEROL 2.5 MG/3 ML NEBU IH PRN (14:13)
[2020-08-12] MEDS ORDERED: SODIUM CHLORIDE 0.9% 50 ML IVPB IV NR (14:30)
[2020-08-12] MEDS: dexAMETHasone 4 MG/ML VIAL IV SCH (17:32)
[2020-08-12] MEDS: ACETAMINOPHEN 325 MG TAB PO PRN (17:33)
[2020-08-12] MEDS: ENOXAPARIN 30 MG/0.3 ML INJ SUB-Q SCH (21:47)
[2020-08-12] MEDS: oxyCODONE /ACETAMINOPHEN 5-325MG TAB PO PRN (21:47)
[2020-08-13] MEDS: guaiFENesin DM 200/20 MG ORAL LIQD 10 ML PO SCH ×4 (03:59→23:42)
[2020-08-13] MEDS: BENZONATATE 100 MG CAP PO SCH ×3 (06:07→21:00)
[2020-08-13] MEDS: PANTOPRAZOLE 40 MG TAB PO SCH (08:34)
--- NOTE | 2020-08-13 09:26 | Progress Note ---
Assessment and Plan Cultures: Blood culture 08/10/2020 no growth today SARS-CoV-2 PCR positive Assessment: 35-year-old female with morbid obesity, hypertension, asthma, admitted on 08/10/2020 secondary to a week history of generalized malaise, body aches, cough and shortness of breath: #Sepsis: remains with high fever, secondary to COVID-19 infection. #Severe COVID-19 infection: Chest x-ray without any infiltrate however patient is morbidly obese limited technique. Inflammatory markers for COVID-19 elevated CRP 2.2, D-dimer 653, LDH 340, ferritin normal. Procalcitonin is low. #Acute respiratory failure: Remains on 3 L. Likely due to COVID-19. #Elevated LFTs: Likely secondary to COVID-19. #Morbid obesity: Associated with worse outcomes #Neutropenia: Likely secondary to COVID-19 infection. Improving. Recommendations: -Repeat chest x-ray -Continue dexamethasone 6 mg IV/PO daily for 10 days -Continue remdesivir for 5 days D2 of 5 -Monitor inflammatory markers - ferritin, Ddimer, CRP, LDH, ordered today -Monitor liver function test on Remdesivir -Continue anticoagulation per System Protocol -Prone positioning as possible -No indication for antibiotics procalcitonin is low All laboratory, cultures and imaging were reviewed. Will follow. Loida Fleming MD Infectious Diseases [employer] [facility] ([facility]) M [phone] O [phone] Subjective Date of service: 08/13/20 Principal diagnosis: COVID Interval history: Patient feeling about the same, still severe coughing spells and shortness of breath. Noted high fever overnight. Objective - Exam Narrative Exam: General appearance: Alert in mild respiratory distress Eyes: anicteric sclerae, moist conjunctivae; no lid-lag; PERRLA HENT: Normocephalic, Atraumatic; normal external ears, nares open, oropharynx clear Neck: supple, tracheal midline, no JVD Lungs: Bilateral scattered crackles CV: RRR no murmur Abdomen: Soft, non-tender; obese Extremities: no edema, no cyanosis Skin: No rash. Psych: no agitated Neuro: alert and oriented x 3. Moving all extermities - Constitutional Vitals: Vital Signs Temp Pulse Resp BP Pulse Ox 97.2 F L 67 20 115/72 97 08/13/20 04:54 08/13/20 04:54 08/13/20 04:54 08/13/20 04:54 08/13/20 04:54 Temperature -Last 24 Hours Temperature 97.2 F Temperature 99.1 F Temperature 102.8 F Temperature 99.1 F Temperature 99.2 F - Labs CBC & Chem 7: 08/12/20 06:23 08/12/20 06:23
--- NOTE | 2020-08-13 09:53 | Progress Note ---
Subjective Date of service: 08/13/20 Principal diagnosis: COVID Interval history: Fever body aches and nausea vomiting for 4 days High temperature 103 prior to admission to the emergency room History of present illness: 35-year-old female with past medical history of hypertension and asthma comes to the emergency room because of nausea vomiting body aches and fever for the last 3 to 4 days. Patient went to [place] emergency department and was treated as upper respiratory symptoms with antibiotics. Patient was stable tested for COVID-19 which became positive later. Here the patient presents with a fever of 103 and she took Tylenol, a few hours before arrival in the emergency room. She took ibuprofen yesterday. No recent travels. Patient is not vaccinated. Exposure to coronavirus present. In the emergency room patient is to 88% on ambulation. No chest pain. Some shortness of breath present. No diaphoresis. Covid test came positive about days ago. 08/11 patient is alert and oriented, not in any distress, no specific complaints except dry cough, fever trending down and she is afebrile this morning, denies shortness of breath, denies headache, dizziness, chest pain, nausea or abdominal pain. Lab results reviewed 08/12 patient is alert and oriented, not in any acute distress, complains of persistent cough mostly dry, denies fever or chills, (has a low-grade fever ), denies shortness of breath or chest pain lab results reviewed. 08/13 alert and oriented and not in any distress, feeling better, states cough is better today, denies chest pain or shortness of breath or fever or chills ID note reviewed Assessment and plan COVID-19 infection Chest x-ray reviewed Inflammatory markers reviewed Continue Decadron day 3 Continue remdesivir therapy day 2 ID consulted/evaluation pending Continue Lovenox for DVT prophylaxis twice daily Proning as able Persistent cough-slow improvement Secondary to Covid 19 pneumonia Continue Tariq villa and Fidelia-DM cough syrup Hypoxia-secondary to COVID-19 pneumonia Continue oxygen via nasal cannula at 4 L/min Oxygen saturation 95 to 98% Leukopenia-improved WBC count went up from 1.6-4.4 this morning Likely viral induced No evidence of sepsis Monitor CBC Hyponatremia Improved Fever Trending down Afebrile today Hypertension Fair Continue present medications History of asthma-not in exacerbation Continue albuterol inhaler as needed Morbid obesity Counseling on diet, weight loss and exercise was done Objective - Constitutional Vitals: Vital Signs - 12hr 08/12/20 08/12/20 08/12/20 21:58 22:00 22:47 Temperature Pulse Rate Pulse Rate [ 79 From Monitor] Respiratory 18 18 Rate Respiratory 18 Rate [Chest] Blood Pressure O2 Sat by Pulse 97 Oximetry 08/13/20 04:54 Temperature 97.2 F L Pulse Rate 67 Pulse Rate [ From Monitor] Respiratory 20 Rate Respiratory Rate [Chest] Blood Pressure 115/72 O2 Sat by Pulse 97 Oximetry General appearance: Present: no acute distress, obese - EENT Eyes: PERRL, EOM intact ENT: hearing intact, clear oral mucosa - Neck Neck: supple, normal ROM - Respiratory Respiratory effort: normal Respiratory: bilateral: CTA - Cardiovascular Rhythm: regular Heart Sounds: Present: S1 & S2 Extremities: No edema - Gastrointestinal General gastrointestinal: Present: soft, non-tender Rectal Exam: deferred - Genitourinary Female genitourinary: deferred - Integumentary Integumentary: clear, warm - Musculoskeletal Musculoskeletal: strength equal bilaterally - Neurologic Neurologic: no focal deficits - Psychiatric Psychiatric: appropriate mood/affect - Labs CBC & Chem 7: 08/12/20 06:23 08/12/20 06:23 HEART Score - HEART Score Troponin: Troponin T < 0.010 ng/mL (0.00-0.029) 08/12/20 14:30
[2020-08-13] MEDS: ASCORBIC ACID 500 MG TAB PO SCH (09:56)
[2020-08-13] MEDS: CHOLECALCIFEROL (VIT D3) 1000 UNIT (25 mcg) TAB PO SCH (09:57)
[2020-08-13] MEDS: FAMOTIDINE 20 MG/2 ML INJ IV SCH (09:57)
[2020-08-13] MEDS: ENOXAPARIN 30 MG/0.3 ML INJ SUB-Q SCH ×3 (09:57→21:48)
[2020-08-13] MEDS: POLYETHYLENE GLYCOL 3350 17 GM POWDER PO SCH (09:58)
[2020-08-13] MEDS: carvediloL 3.125 MG TAB PO SCH ×4 (10:08→21:49)
[2020-08-13] MEDS: ALBUTEROL 2.5 MG/3 ML NEBU IH PRN (14:24)
[2020-08-13] MEDS: dexAMETHasone 4 MG/ML VIAL IV SCH (17:31)
[2020-08-13] MEDS: ACETAMINOPHEN 325 MG TAB PO PRN (18:11)
[2020-08-13] MEDS: REMDESIVIR 100 MG in SODIUM CHLORIDE 0.9% 250ML 250 ML IV SCH (20:59)
[2020-08-13] MEDS: SODIUM CHLORIDE 0.9% 50 ML IVPB IV SCH (21:00)
[2020-08-13] MEDS ORDERED: MAGNESIUM CITRATE 300 ML ORAL LIQD PO ONE (21:33)
[2020-08-14] MEDS: guaiFENesin DM 200/20 MG ORAL LIQD 10 ML PO SCH ×4 (04:52→22:48)
[2020-08-14] MEDS: oxyCODONE /ACETAMINOPHEN 5-325MG TAB PO PRN (04:59)
[2020-08-14] MEDS: BENZONATATE 100 MG CAP PO SCH ×3 (05:10→22:06)
[2020-08-14] MEDS: PANTOPRAZOLE 40 MG TAB PO SCH (07:41)
[2020-08-14 07:58] LABS: Hematocrit 34.3 % (30.3-42.9); Hemoglobin 11.8 gm/dl (10.1-14.3); Mean Corpuscular HGB Conc 34 % (30-34); Mean Corpuscular Volume 90 fl (79-97); Platelet Count 207 K/mm3 (140-440); Red Cell Distribution Width 13.2 % (13.2-15.2)
[2020-08-14 08:22] LABS: Blood Urea Nitrogen 12 mg/dL (7-17); Calcium 8.4 mg/dL (8.4-10.2); Hemolysis Index 0
[2020-08-14 08:27] LABS: BUN/Creatinine Ratio 20
--- NOTE | 2020-08-14 09:17 | Progress Note ---
Assessment and Plan Cultures: Blood culture 08/10/2020 no growth today SARS-CoV-2 PCR positive Assessment: 35-year-old female with morbid obesity, hypertension, asthma, admitted on 08/10/2020 secondary to a week history of generalized malaise, body aches, cough and shortness of breath: #Sepsis: remains with high fever, secondary to COVID-19 infection. #Severe COVID-19 infection: Chest x-ray without any infiltrate however patient is morbidly obese limited technique. Inflammatory markers for COVID-19 elevated CRP 2.2, D-dimer 653, LDH 340, ferritin normal. Procalcitonin is low. #Acute respiratory failure: 4L. Likely due to COVID-19. #Elevated LFTs: Likely secondary to COVID-19. #Morbid obesity: Associated with worse outcomes #Neutropenia: Likely secondary to COVID-19 infection. Improving. Recommendations: -Repeat chest x-ray -Continue dexamethasone 6 mg IV/PO daily for 10 days -Continue remdesivir for 5 days D3 of 5 -Monitor inflammatory markers - ferritin, Ddimer, CRP, LDH, ordered today -Monitor liver function test on Remdesivir -Continue anticoagulation per System Protocol -Prone positioning as possible -No indication for antibiotics procalcitonin is low Stacy Low MD [facility] O: [phone] F: [phone] Subjective Date of service: 08/14/20 Principal diagnosis: COVID Interval history: Afebrile over last 24, white count 3.1. On 4 L nasal cannula. Objective - Exam Narrative Exam: Physical exam deferred to reduce risk of transmission of COVID-19. Please refer to primary team's note. - Constitutional Vitals: Vital Signs Temp Pulse Resp BP Pulse Ox 98.7 F 78 20 137/86 98 08/14/20 04:39 08/13/20 16:39 08/14/20 04:39 08/14/20 04:39 08/14/20 08:05 Temperature -Last 24 Hours Temperature 98.7 F Temperature 99.4 F Temperature 99.0 F - Labs CBC & Chem 7: 08/14/20 06:47 08/14/20 06:47 Labs: Abnormal lab results 08/13/20 08/13/20 08/14/20 Range/Units 13:48 13:48 06:47 WBC 3.1 L (4.5-11.0) K/mm3 D-Dimer 287.85 H (0-234) ng/mlDDU Glucose (65-100) mg/dL Lactate Dehydrogenase 312 H (91-180) units/L C-Reactive Protein 5.00 H (0.00-1.30) mg/dL 08/14/20 Range/Units 06:47 WBC (4.5-11.0) K/mm3 D-Dimer (0-234) ng/mlDDU Glucose 124 H (65-100) mg/dL Lactate Dehydrogenase (91-180) units/L C-Reactive Protein (0.00-1.30) mg/dL
[2020-08-14] MEDS: carvediloL 3.125 MG TAB PO SCH ×2 (09:30→22:42)
[2020-08-14] MEDS: CHOLECALCIFEROL (VIT D3) 1000 UNIT (25 mcg) TAB PO SCH (09:30)
[2020-08-14] MEDS: ASCORBIC ACID 500 MG TAB PO SCH (09:30)
[2020-08-14] MEDS: ENOXAPARIN 30 MG/0.3 ML INJ SUB-Q SCH ×2 (09:30→22:06)
[2020-08-14] MEDS: POLYETHYLENE GLYCOL 3350 17 GM POWDER PO SCH (09:31)
[2020-08-14] MEDS: dexAMETHasone 4 MG/ML VIAL IV SCH (17:14)
[2020-08-14] MEDS: REMDESIVIR 100 MG in SODIUM CHLORIDE 0.9% 250ML 250 ML IV SCH (22:05)
[2020-08-14] MEDS: SODIUM CHLORIDE 0.9% 50 ML IVPB IV SCH (22:06)
[2020-08-14] MEDS: ONDANSETRON 4 MG/2 ML INJ IV PRN (22:48)
[2020-08-15] MEDS: guaiFENesin DM 200/20 MG ORAL LIQD 10 ML PO SCH ×4 (05:54→22:11)
[2020-08-15] MEDS: BENZONATATE 100 MG CAP PO SCH ×3 (05:54→22:12)
[2020-08-15] MEDS: ACETAMINOPHEN 325 MG TAB PO PRN (06:15)
[2020-08-15 06:19] LABS: Alanine Aminotransferase 51 units/L (7-56); Blood Urea Nitrogen 11 mg/dL (7-17); Calcium 8.3 mg/dL (8.4-10.2); Hemolysis Index 14
[2020-08-15 06:28] LABS: BUN/Creatinine Ratio 18
--- NOTE | 2020-08-15 07:58 | Progress Note ---
Assessment and Plan - Patient Problems (1) Sepsis Current Visit: Yes Status: Acute Plan to address problem: with high fever, secondary to COVID-19 infection. (2) Respiratory failure with hypoxia Current Visit: Yes Status: Acute Qualifiers: Chronicity: acute Qualified Code(s): J96.01 - Acute respiratory failure with hypoxia Plan to address problem: Especially on ambulation Sats are 88% on ambulation Down to 4 L from 8 L nasal cannula oxygen to continue Improving (3) COVID-19 Current Visit: Yes Status: Acute Plan to address problem: Coronavirus PCR is positive On IV Decadron and IV remdesivir ID consult appreciated (4) Viral syndrome Current Visit: Yes Status: Acute Plan to address problem: Symptomatic treatment (5) Hypertension Current Visit: Yes Status: Chronic Qualifiers: Hypertension type: primary hypertension Qualified Code(s): I10 - Essential (primary) hypertension Plan to address problem: Continue antihypertensives and adjust medications as necessary (6) Asthma Current Visit: Yes Status: Inactive Plan to address problem: Bronchodilators as necessary (7) DVT prophylaxis Current Visit: Yes Status: Acute Plan to address problem: On Lovenox and GI prophylaxis Subjective Date of service: 08/14/20 Principal diagnosis: COVID Interval history: History of present illness: 35-year-old female with past medical history of hypertension and asthma comes to the emergency room because of nausea vomiting body aches and fever for the last 3 to 4 days. Patient went to [place] emergency department and was treated as upper respiratory symptoms with antibiotics. Patient was stable tested for COVID-19 which became positive later. Here the patient presents with a fever of 103 and she took Tylenol, a few hours before arrival in the emergency room. She took ibuprofen yesterday. No recent travels. Patient is not vaccinated. Exposure to coronavirus present. In the emergency room patient is to 88% on ambulation. No chest pain. Some shortness of breath present. No diaphoresis. Covid test came positive about days ago. 08/11 patient is alert and oriented, not in any distress, no specific complaints except dry cough, fever trending down and she is afebrile this morning, denies shortness of breath, denies headache, dizziness, chest pain, nausea or abdominal pain. Lab results reviewed 08/12 patient is alert and oriented, not in any acute distress, complains of persistent cough mostly dry, denies fever or chills, (has a low-grade fever ), denies shortness of breath or chest pain lab results reviewed. 08/13 alert and oriented and not in any distress, feeling better, states cough is better today, denies chest pain or shortness of breath or fever or chills ID note reviewed 08/14/2020 Patient on 4 L nasal cannula oxygen Otherwise comfortable Objective - Constitutional Vitals: Vital Signs - 12hr 08/14/20 08/14/20 08/14/20 21:17 22:15 22:42 Temperature 98.6 F Pulse Rate 68 68 Respiratory 20 Rate Blood Pressure 131/80 131/80 O2 Sat by Pulse 95 96 Oximetry 08/15/20 05:06 Temperature 98.2 F Pulse Rate 61 Respiratory 20 Rate Blood Pressure 123/76 O2 Sat by Pulse 94 Oximetry General appearance: Present: no acute distress, well-nourished - EENT Eyes: PERRL, EOM intact ENT: hearing intact, clear oral mucosa Ears: bilateral: normal - Neck Neck: supple, normal ROM - Respiratory Respiratory effort: normal Respiratory: bilateral: CTA, rhonchi - Breasts Breasts: normal - Cardiovascular Rhythm: regular Heart Sounds: Present: S1 & S2. Absent: gallop, rub Extremities: pulses intact, No edema, normal color, Full ROM - Gastrointestinal General gastrointestinal: Present: soft, non-tender, non-distended, normal bowel sounds - Genitourinary Female genitourinary: normal - Integumentary Integumentary: clear, warm, dry - Musculoskeletal Musculoskeletal: 1, strength equal bilaterally - Neurologic Neurologic: moves all extremities - Psychiatric Psychiatric: memory intact, appropriate mood/affect, intact judgment & insight - Labs CBC & Chem 7: 08/14/20 06:47 08/15/20 05:15 Labs: Abnormal lab results 08/14/20 08/14/20 08/15/20 Range/Units 06:47 06:47 05:15 WBC 3.1 L (4.5-11.0) K/mm3 Glucose 124 H 128 H (65-100) mg/dL Calcium 8.3 L (8.4-10.2) mg/dL AST 57 H (5-40) units/L Total Protein 6.2 L (6.3-8.2) g/dL Albumin 3.0 L (3.9-5) g/dL HEART Score - HEART Score Troponin: Troponin T < 0.010 ng/mL (0.00-0.029) 08/12/20 14:30
--- NOTE | 2020-08-15 07:59 | Progress Note ---
Assessment and Plan - Patient Problems (1) Sepsis Current Visit: Yes Status: Acute Plan to address problem: with high fever, secondary to COVID-19 infection. (2) Respiratory failure with hypoxia Current Visit: Yes Status: Acute Qualifiers: Chronicity: acute Qualified Code(s): J96.01 - Acute respiratory failure with hypoxia Plan to address problem: Patient 4 L nasal cannula oxygen Getting better We will try to do oxygen saturations on room air and walk test tomorrow If normal will discharge the patient home (3) COVID-19 Current Visit: Yes Status: Acute Plan to address problem: Coronavirus PCR is positive On IV dexamethasone and remdesivir Remdesivir day 4 of day 5 (4) Viral syndrome Current Visit: Yes Status: Acute Plan to address problem: Symptomatic treatment (5) Hypertension Current Visit: Yes Status: Chronic Qualifiers: Hypertension type: primary hypertension Qualified Code(s): I10 - Essential (primary) hypertension Plan to address problem: Continue antihypertensives and adjust medications as necessary (6) Asthma Current Visit: Yes Status: Inactive Plan to address problem: Bronchodilators as necessary (7) DVT prophylaxis Current Visit: Yes Status: Acute Plan to address problem: On Lovenox and GI prophylaxis Subjective Date of service: 08/15/20 Principal diagnosis: COVID Interval history: History of present illness: 35-year-old female with past medical history of hypertension and asthma comes to the emergency room because of nausea vomiting body aches and fever for the last 3 to 4 days. Patient went to [place] emergency department and was treated as upper respiratory symptoms with antibiotics. Patient was stable tested for COVID-19 which became positive later. Here the patient presents with a fever of 103 and she took Tylenol, a few hours before arrival in the emergency room. She took ibuprofen yesterday. No recent travels. Patient is not vaccinated. Exposure to coronavirus present. In the emergency room patient is to 88% on ambulation. No chest pain. Some shortness of breath present. No diaphoresis. Covid test came positive about days ago. 08/11 patient is alert and oriented, not in any distress, no specific complaints except dry cough, fever trending down and she is afebrile this morning, denies shortness of breath, denies headache, dizziness, chest pain, nausea or abdominal pain. Lab results reviewed 08/12 patient is alert and oriented, not in any acute distress, complains of persistent cough mostly dry, denies fever or chills, (has a low-grade fever ), denies shortness of breath or chest pain lab results reviewed. 08/13 alert and oriented and not in any distress, feeling better, states cough is better today, denies chest pain or shortness of breath or fever or chills ID note reviewed 08/14/2020 Patient on 4 L nasal cannula oxygen Otherwise comfortable 08/15/2020 Patient more comfortable on 4 L nasal cannula oxygen Takes oxygen off sometimes Will get a walk test tomorrow and possible discharge Objective - Constitutional Vitals: Vital Signs - 12hr 08/14/20 08/14/20 08/14/20 21:17 22:15 22:42 Temperature 98.6 F Pulse Rate 68 68 Respiratory 20 Rate Blood Pressure 131/80 131/80 O2 Sat by Pulse 95 96 Oximetry 08/15/20 05:06 Temperature 98.2 F Pulse Rate 61 Respiratory 20 Rate Blood Pressure 123/76 O2 Sat by Pulse 94 Oximetry General appearance: Present: no acute distress, well-nourished - EENT Eyes: PERRL, EOM intact ENT: hearing intact, clear oral mucosa Ears: bilateral: normal - Neck Neck: supple, normal ROM - Respiratory Respiratory effort: normal Respiratory: bilateral: CTA, rhonchi (Scattered) - Breasts Breasts: normal - Cardiovascular Heart rate: 78 Rhythm: regular Heart Sounds: Present: S1 & S2. Absent: gallop, rub Extremities: pulses intact, No edema, normal color, Full ROM - Gastrointestinal General gastrointestinal: Present: soft, non-tender, non-distended, normal bowel sounds - Genitourinary Female genitourinary: normal - Integumentary Integumentary: clear, warm, dry - Musculoskeletal Musculoskeletal: 1, strength equal bilaterally - Neurologic Neurologic: moves all extremities - Psychiatric Psychiatric: memory intact, appropriate mood/affect, intact judgment & insight - Labs CBC & Chem 7: 08/14/20 06:47 08/15/20 05:15 Labs: Abnormal lab results 08/14/20 08/15/20 Range/Units 06:47 05:15 Glucose 124 H 128 H (65-100) mg/dL Calcium 8.3 L (8.4-10.2) mg/dL AST 57 H (5-40) units/L Total Protein 6.2 L (6.3-8.2) g/dL Albumin 3.0 L (3.9-5) g/dL HEART Score - HEART Score Troponin: Troponin T < 0.010 ng/mL (0.00-0.029) 08/12/20 14:30
[2020-08-15] MEDS: PANTOPRAZOLE 40 MG TAB PO SCH (08:15)
[2020-08-15] MEDS: carvediloL 3.125 MG TAB PO SCH ×2 (09:40→22:11)
[2020-08-15] MEDS: POLYETHYLENE GLYCOL 3350 17 GM POWDER PO SCH ×2 (09:40→09:49)
[2020-08-15] MEDS: ASCORBIC ACID 500 MG TAB PO SCH (09:40)
[2020-08-15] MEDS: ENOXAPARIN 30 MG/0.3 ML INJ SUB-Q SCH ×2 (09:40→22:12)
[2020-08-15] MEDS: CHOLECALCIFEROL (VIT D3) 1000 UNIT (25 mcg) TAB PO SCH (09:40)
--- NOTE | 2020-08-15 13:31 | Progress Note ---
Assessment and Plan Cultures: Blood culture 08/10/2020 no growth today SARS-CoV-2 PCR positive Assessment: 35-year-old female with morbid obesity, hypertension, asthma, admitted on 08/10/2020 secondary to a week history of generalized malaise, body aches, cough and shortness of breath: #Sepsis: remains with high fever, secondary to COVID-19 infection. #Severe COVID-19 infection: Chest x-ray without any infiltrate however patient is morbidly obese limited technique. Inflammatory markers for COVID-19 elevated CRP 2.2, D-dimer 653, LDH 340, ferritin normal. Procalcitonin is low. #Acute respiratory failure: 4L. Likely due to COVID-19. #Elevated LFTs: Likely secondary to COVID-19. #Morbid obesity: Associated with worse outcomes #Neutropenia: Likely secondary to COVID-19 infection. Improving. Recommendations: -Continue dexamethasone 6 mg IV/PO daily for 10 days -Continue remdesivir for 5 days D4 of 5 -Monitor inflammatory markers - ferritin, Ddimer, CRP, LDH q48-72 hours -Monitor liver function test on Remdesivir -Continue anticoagulation per System Protocol -Prone positioning as possible -Recommend 6MWT test prior to discharge. Stacy Low MD [facility] O: [phone] F: [phone] Subjective Date of service: 08/15/20 Principal diagnosis: COVID Interval history: Afebrile, white count 3.1. Currently requiring 4 L nasal cannula Objective - Exam Narrative Exam: Physical exam deferred to reduce risk of transmission of COVID-19. Please refer to primary team's note. - Constitutional Vitals: Vital Signs Temp Pulse Resp BP Pulse Ox 98.2 F 61 20 123/76 94 08/15/20 05:06 08/15/20 09:40 08/15/20 05:06 08/15/20 09:40 08/15/20 05:06 Temperature -Last 24 Hours Temperature 98.2 F Temperature 98.6 F - Labs CBC & Chem 7: 08/14/20 06:47 08/15/20 05:15 Labs: Abnormal lab results 08/15/20 Range/Units 05:15 Glucose 128 H (65-100) mg/dL Calcium 8.3 L (8.4-10.2) mg/dL AST 57 H (5-40) units/L Total Protein 6.2 L (6.3-8.2) g/dL Albumin 3.0 L (3.9-5) g/dL
[2020-08-15] MEDS: dexAMETHasone 4 MG/ML VIAL IV SCH (17:25)
[2020-08-15] MEDS: REMDESIVIR 100 MG in SODIUM CHLORIDE 0.9% 250ML 250 ML IV SCH (22:11)
[2020-08-15] MEDS: oxyCODONE /ACETAMINOPHEN 5-325MG TAB PO PRN (22:26)
[2020-08-15] MEDS: SODIUM CHLORIDE 0.9% 50 ML IVPB IV SCH (22:45)
[2020-08-16] MEDS: BENZONATATE 100 MG CAP PO SCH ×3 (06:34→21:51)
[2020-08-16] MEDS: guaiFENesin DM 200/20 MG ORAL LIQD 10 ML PO SCH ×3 (06:34→17:17)
[2020-08-16] MEDS: PANTOPRAZOLE 40 MG TAB PO SCH (07:30)
[2020-08-16 08:25] LABS: Alanine Aminotransferase 80 units/L (7-56); Albumin 3.5 g/dL (3.9-5); Blood Urea Nitrogen 12 mg/dL (7-17); Calcium 8.8 mg/dL (8.4-10.2); Hemolysis Index 0
[2020-08-16 08:34] LABS: BUN/Creatinine Ratio 20
[2020-08-16] MEDS: ASCORBIC ACID 500 MG TAB PO SCH (09:03)
[2020-08-16] MEDS: CHOLECALCIFEROL (VIT D3) 1000 UNIT (25 mcg) TAB PO SCH (09:03)
[2020-08-16] MEDS: ENOXAPARIN 30 MG/0.3 ML INJ SUB-Q SCH ×2 (09:03→21:51)
[2020-08-16] MEDS: carvediloL 3.125 MG TAB PO SCH ×2 (09:03→21:51)
[2020-08-16] MEDS: POLYETHYLENE GLYCOL 3350 17 GM POWDER PO SCH (09:15)
--- NOTE | 2020-08-16 11:06 | Electrocardiograph Report ---
[facility] Test Date: 2020-08-12 Test Time: 13:57:40 Pat Name: ENMA RAMÍREZ Department: Room: A357 1 Gender: F Online Facilitator: [phone] : 1985 Requested By: DENI DEAN Order Number: [id number] Reading MD: Kenneth Sin Measurements Intervals [place] Rate: 90 P: 19 UT: 143 QRS: 12 QRSD: 93 T: 14 QT: 331 QTc: 405 Interpretive Statements Sinus rhythm Low voltage, precordial leads No previous ECG available for comparison Electronically Signed On 08-16-2020 11:06:12 EDT by Kenneth Sin
--- NOTE | 2020-08-16 12:45 | Progress Note ---
Assessment and Plan Assessment and plan: 35-year-old female with past medical history of hypertension and asthma comes to the emergency room because of nausea vomiting body aches and fever for the last 3 to 4 days. Patient went to [place] emergency department and was treated as upper respiratory symptoms with antibiotics. Patient was stable tested for COVID-19 which became positive later. Here the patient presents with a fever of 103 and she took Tylenol, a few hours before arrival in the emergency room. She took ibuprofen yesterday. No recent travels. Patient is not vaccinated. Exposure to coronavirus present. In the emergency room patient is to 88% on ambulation. No chest pain. Some shortness of breath present. No diaphoresis. Covid test came positive about days ago. 08/11 patient is alert and oriented, not in any distress, no specific complaints except dry cough, fever trending down and she is afebrile this morning, denies shortness of breath, denies headache, dizziness, chest pain, nausea or abdominal pain. Lab results reviewed 08/12 patient is alert and oriented, not in any acute distress, complains of persistent cough mostly dry, denies fever or chills, (has a low-grade fever ), denies shortness of breath or chest pain lab results reviewed. 08/13 alert and oriented and not in any distress, feeling better, states cough is better today, denies chest pain or shortness of breath or fever or chills ID note reviewed 08/14/2020 Patient on 4 L nasal cannula oxygen Otherwise comfortable 08/15/2020 Patient more comfortable on 4 L nasal cannula oxygen Takes oxygen off sometimes Will get a walk test tomorrow and possible discharge 08/16: Seen and examined this morning she reports that she still has persistent cough she denies worsening shortness of breath. But still short of breath at rest. She tells me elaborate story about her being from [place] and does not have anywhere to go when she leaves the hospital last she is required to isolate for 2 weeks prior to returning to [place]. Case management was consulted I discussed with nursing staff to obtain a home O2 evaluation but she is refusing. (1) Sepsis Current Visit: Yes Status: Acute Plan to address problem: with high fever, secondary to COVID-19 infection. (2) Respiratory failure with hypoxia Current Visit: Yes Status: Acute Qualifiers: Chronicity: acute Qualified Code(s): J96.01 - Acute respiratory failure with hypoxia Plan to address problem: Patient 4 L nasal cannula oxygen Getting better We will try to do oxygen saturations on room air and walk test tomorrow If normal will discharge the patient home (3) COVID-19 Current Visit: Yes Status: Acute Plan to address problem: Coronavirus PCR is positive On IV dexamethasone and remdesivir Remdesivir day 4 of day 5 (4) Viral syndrome Current Visit: Yes Status: Acute Plan to address problem: Symptomatic treatment (5) Hypertension Current Visit: Yes Status: Chronic Qualifiers: Hypertension type: primary hypertension Qualified Code(s): I10 - Essential (primary) hypertension Plan to address problem: Continue antihypertensives and adjust medications as necessary (6) Asthma Current Visit: Yes Status: Inactive Plan to address problem: Bronchodilators as necessary (7) DVT prophylaxis Current Visit: Yes Status: Acute Plan to address problem: On Lovenox and GI prophylaxis History Interval history: Patient seen and examined does not appear motivated. Denies chest pain but reports cough still with shortness of breath. Hospitalist Physical - Physical exam Narrative exam: VITAL SIGNS: Reviewed. GENERAL: The patient appears normally developed, morbidly obese vital signs as documented. HEAD: No signs of head trauma. EYES: Pupils are equal. Extraocular motions intact. EARS: Hearing grossly intact. MOUTH: Oropharynx is normal. NECK: No adenopathy, no JVD. CHEST: Chest with crackles at the base breath sounds bilaterally. No wheezes. CARDIAC: Regular rate and rhythm. S1 and S2, without murmurs, gallops, or rubs. VASCULAR: No Edema. Peripheral pulses normal and equal in all extremities. ABDOMEN: Soft, non tender and non distended. No rebound or guarding, and no masses palpated. Bowel Sounds normal. MUSCULOSKELETAL: Good range of motion of all major joints. Extremities without clubbing, cyanosis or edema. NEUROLOGIC EXAM: Alert and oriented x 3 No focal sensory or strength deficits. Speech normal. Follows commands. PSYCHIATRIC: Mood normal. SKIN: detail exam as documented in skin assessment - Constitutional Vitals: Temp Pulse Resp BP Pulse Ox 98.1 F 52 L 18 114/60 99 08/16/20 04:38 08/16/20 04:38 08/16/20 04:38 08/16/20 04:38 08/16/20 08:26 General appearance: Present: no acute distress, well-nourished HEART Score - HEART Score Troponin: Troponin T < 0.010 ng/mL (0.00-0.029) 08/12/20 14:30 Results - Labs CBC & Chem 7: 08/14/20 06:47 08/16/20 06:58 Labs: Laboratory Last Values WBC 3.1 K/mm3 (4.5-11.0) L 08/14/20 06:47 RBC 3.80 M/mm3 (3.65-5.03) 08/14/20 06:47 Hgb 11.8 gm/dl (10.1-14.3) 08/14/20 06:47 Hct 34.3 % (30.3-42.9) 08/14/20 06:47 MCV 90 fl (79-97) 08/14/20 06:47 MCH 31 pg (28-32) 08/14/20 06:47 MCHC 34 % (30-34) 08/14/20 06:47 RDW 13.2 % (13.2-15.2) 08/14/20 06:47 Plt Count 207 K/mm3 (140-440) 08/14/20 06:47 Lymph % (Auto) 14.3 % (13.4-35.0) 08/12/20 06:23 Kaufman % (Auto) 5.0 % (0.0-7.3) 08/12/20 06:23 Eos % (Auto) 0.0 % (0.0-4.3) 08/12/20 06:23 Baso % (Auto) 0.2 % (0.0-1.8) 08/12/20 06:23 Lymph # (Auto) 0.6 K/mm3 (1.2-5.4) L 08/12/20 06:23 Kaufman # (Auto) 0.2 K/mm3 (0.0-0.8) 08/12/20 06:23 Eos # (Auto) 0.0 K/mm3 (0.0-0.4) 08/12/20 06:23 Baso # (Auto) 0.0 K/mm3 (0.0-0.1) 08/12/20 06:23 Add Manual Diff Complete 08/11/20 06:22 Total Counted 100 08/11/20 06:22 Seg Neutrophils % 80.5 % (40.0-70.0) H 08/12/20 06:23 Seg Neuts % (Manual) 71.0 % (40.0-70.0) H 08/11/20 06:22 Lymphocytes % (Manual) 29.0 % (13.4-35.0) 08/11/20 06:22 Monocytes % (Manual) 12.0 % (0.0-7.3) H 08/10/20 14:21 Nucleated RBC % Not Reportable 08/11/20 06:22 Seg Neutrophils # 3.6 K/mm3 (1.8-7.7) 08/12/20 06:23 Seg Neutrophils # Man 1.1 K/mm3 (1.8-7.7) L 08/11/20 06:22 Band Neutrophils # 0.0 K/mm3 08/11/20 06:22 Lymphocytes # (Manual) 0.5 K/mm3 (1.2-5.4) L 08/11/20 06:22 Abs React Lymphs (Man) 0.0 K/mm3 08/11/20 06:22 Monocytes # (Manual) 0.0 K/mm3 (0.0-0.8) 08/11/20 06:22 Eosinophils # (Manual) 0.0 K/mm3 (0.0-0.4) 08/11/20 06:22 Basophils # (Manual) 0.0 K/mm3 (0.0-0.1) 08/11/20 06:22 Metamyelocytes # 0.0 K/mm3 08/11/20 06:22 Myelocytes # 0.0 K/mm3 08/11/20 06:22 Promyelocytes # 0.0 K/mm3 08/11/20 06:22 Blast Cells # 0.0 K/mm3 08/11/20 06:22 WBC Morphology Not Reportable 08/11/20 06:22 Hypersegmented Neuts Not Reportable 08/11/20 06:22 Hyposegmented Neuts Not Reportable 08/11/20 06:22 Hypogranular Neuts Not Reportable 08/11/20 06:22 Smudge Cells Not Reportable 08/11/20 06:22 Toxic Granulation Not Reportable 08/11/20 06:22 Toxic Vacuolation Not Reportable 08/11/20 06:22 Dohle Bodies Not Reportable 08/11/20 06:22 Pelger-Huet Anomaly Not Reportable 08/11/20 06:22 Geraldo Rods Not Reportable 08/11/20 06:22 Platelet Estimate Consistent w auto 08/11/20 06:22 Clumped Platelets Not Reportable 08/11/20 06:22 Plt Clumps, EDTA Not Reportable 08/11/20 06:22 Large Platelets Not Reportable 08/11/20 06:22 Giant Platelets Not Reportable 08/11/20 06:22 Platelet Satelliting Not Reportable 08/11/20 06:22 Plt Morphology Comment Not Reportable 08/11/20 06:22 RBC Morphology Normal 08/11/20 06:22 Dimorphic RBCs Not Reportable 08/11/20 06:22 Polychromasia Not Reportable 08/11/20 06:22 Hypochromasia Not Reportable 08/11/20 06:22 Poikilocytosis Not Reportable 08/11/20 06:22 Anisocytosis Not Reportable 08/11/20 06:22 Microcytosis Not Reportable 08/11/20 06:22 Macrocytosis Not Reportable 08/11/20 06:22 Spherocytes Not Reportable 08/11/20 06:22 Pappenheimer Bodies Not Reportable 08/11/20 06:22 Sickle Cells Not Reportable 08/11/20 06:22 Target Cells Not Reportable 08/11/20 06:22 Tear Drop Cells Not Reportable 08/11/20 06:22 Ovalocytes Not Reportable 08/11/20 06:22 Helmet Cells Not Reportable 08/11/20 06:22 Tomlinson-Temple Bodies Not Reportable 08/11/20 06:22 Dalzell Rings Not Reportable 08/11/20 06:22 Qamar Cells Not Reportable 08/11/20 06:22 Bite Cells Not Reportable 08/11/20 06:22 Crenated Cell Not Reportable 08/11/20 06:22 Elliptocytes Not Reportable 08/11/20 06:22 Acanthocytes (Spur) Not Reportable 08/11/20 06:22 Rouleaux Not Reportable 08/11/20 06:22 Hemoglobin C Crystals Not Reportable 08/11/20 06:22 Schistocytes Not Reportable 08/11/20 06:22 Malaria parasites Not Reportable 08/11/20 06:22 Ignacio Bodies Not Reportable 08/11/20 06:22 Hem Pathologist Commnt No 08/11/20 06:22 D-Dimer 287.85 ng/mlDDU (0-234) H 08/13/20 13:48 Sodium 140 mmol/L (137-145) 08/16/20 06:58 Potassium 4.8 mmol/L (3.6-5.0) 08/16/20 06:58 Chloride 101.8 mmol/L (98-107) 08/16/20 06:58 Carbon Dioxide 28 mmol/L (22-30) 08/16/20 06:58 Anion Gap 15 mmol/L 08/16/20 06:58 BUN 12 mg/dL (7-17) 08/16/20 06:58 Creatinine 0.6 mg/dL (0.6-1.2) 08/16/20 06:58 Estimated GFR > 60 ml/min 08/16/20 06:58 BUN/Creatinine Ratio 20 % 08/16/20 06:58 Glucose 110 mg/dL (65-100) H 08/16/20 06:58 Hemoglobin A1c 5.6 % (4-6) 08/11/20 06:22 Calcium 8.8 mg/dL (8.4-10.2) 08/16/20 06:58 Ferritin 171.8 ng/mL (10.0-200.0) 08/13/20 13:48 Total Bilirubin 0.20 mg/dL (0.1-1.2) 08/16/20 06:58 AST 64 units/L (5-40) H 08/16/20 06:58 ALT 80 units/L (7-56) H 08/16/20 06:58 Alkaline Phosphatase 43 units/L (35-129) 08/16/20 06:58 Lactate Dehydrogenase 312 units/L (91-180) H 08/13/20 13:48 Troponin T < 0.010 ng/mL (0.00-0.029) 08/12/20 14:30 C-Reactive Protein 5.00 mg/dL (0.00-1.30) H 08/13/20 13:48 Total Protein 5.9 g/dL (6.3-8.2) L 08/16/20 06:58 Albumin 3.5 g/dL (3.9-5) L 08/16/20 06:58 Albumin/Globulin Ratio 1.5 % 08/16/20 06:58 Lipase 27 units/L (13-60) 08/10/20 14:21 Procalcitonin < 0.05 ng/mL (<0.15) 08/10/20 18:34 HCG, Qual Negative (Negative) 08/10/20 14:21 Urine Color Yellow (Yellow) 08/10/20 Unknown Urine Turbidity Slightly-cloudy (Clear) 08/10/20 Unknown Urine pH 6.0 (5.0-7.0) 08/10/20 Unknown Ur Specific [place] 1.010 (1.003-1.030) 08/10/20 Unknown Urine Protein <15 mg/dl mg/dL (Negative) 08/10/20 Unknown Urine Glucose (UA) Neg mg/dL (Negative) 08/10/20 Unknown Urine Ketones Tr mg/dL (Negative) 08/10/20 Unknown Urine Blood Lg (Negative) 08/10/20 Unknown Urine Nitrite Neg (Negative) 08/10/20 Unknown Urine Bilirubin Neg (Negative) 08/10/20 Unknown Urine Urobilinogen < 2.0 mg/dL (<2.0) 08/10/20 Unknown Ur Leukocyte Esterase Sm (Negative) 08/10/20 Unknown Urine WBC (Auto) 3.0 /HPF (0.0-6.0) 08/10/20 Unknown Urine RBC (Auto) 7.0 /HPF (0.0-6.0) 08/10/20 Unknown U Epithel Cells (Auto) 4.0 /HPF (0-13.0) 08/10/20 Unknown Urine Bacteria (Auto) 1+ /HPF (Negative) 08/10/20 Unknown Urine Mucus Few /HPF 08/10/20 Unknown Coronavirus (PCR) Positive (Negative) A 08/11/20 09:20 Microbiology: Microbiology 08/10/20 18:37 Peripheral/Venous Blood Culture - Final NO GROWTH AFTER 5 DAYS 08/10/20 18:34 Peripheral/Venous Blood Culture - Final NO GROWTH AFTER 5 DAYS Miramontes/IV: Voiding Method Toilet Active Medications - Current Medications Current Medications: Generic Name Dose Route Start Last Admin Trade Name Freq PRN Reason Stop Dose Admin Acetaminophen 650 mg 08/10/20 21:38 08/15/20 06:15 Acetaminophen 325 Mg Tab PO 650 mg Q4H PRN Administration Pain MILD(1-3)/Fever >100.5/VILLANUEVA Albuterol 2.5 mg 08/11/20 16:59 08/13/20 14:24 Albuterol 2.5 Mg/3 Ml Nebu IH 2.5 mg TID PRN Administration Wheezing Ascorbic Acid 1,000 mg 08/11/20 18:00 08/16/20 09:03 Ascorbic Acid 500 Mg Tab PO 1,000 mg QDAY JHONY Administration Benzonatate 200 mg 08/12/20 14:00 08/16/20 06:34 Benzonatate 100 Mg Cap PO 200 mg Q8HR JHONY Administration Carvedilol 3.125 mg 08/11/20 10:00 08/16/20 09:03 Carvedilol 3.125 Mg Tab PO 3.125 mg BID JHONY Administration Cholecalciferol 1,000 unit 08/11/20 17:00 08/16/20 09:03 Cholecalciferol (Vit D3) 1000 Unit (25 Mcg) Tab PO 1,000 unit QDAY JHONY Administration Dexamethasone 8 mg 08/11/20 18:00 08/15/20 17:25 Dexamethasone 4 Mg/Ml Vial IV 08/20/20 18:01 8 mg Q24H JHONY Administration Enoxaparin Sodium 30 mg 08/12/20 22:00 08/16/20 09:03 Enoxaparin 30 Mg/0.3 Ml Inj SUB-Q 30 mg BID JHONY Administration Protocol Guaifenesin 10 ml 08/12/20 11:00 08/16/20 11:00 Guaifenesin Dm 200/20 Mg Oral Liqd 10 Ml PO 10 ml Q6H JHONY Administration REMDESIVIR 100 mg/ Sodium 250 mls @ 500 mls/hr 08/13/20 21:00 08/15/20 22:11 Chloride IV 08/16/20 21:29 500 mls/hr Q24HR@2100 JHONY Administration Ondansetron HCl 4 mg 08/10/20 21:38 08/14/20 22:48 Ondansetron 4 Mg/2 Ml Inj IV 4 mg Q8H PRN Administration Nausea And Vomiting Oxycodone/Acetaminophen 1 tab 08/10/20 21:38 08/15/20 22:26 Oxycodone /Acetaminophen 5-325mg Tab PO 1 tab Q6H PRN Administration Pain, Moderate (4-6) Pantoprazole Sodium 40 mg 08/12/20 14:00 08/16/20 07:30 Pantoprazole 40 Mg Tab PO 40 mg QDAC JHONY Administration Polyethylene Glycol 17 gm 08/12/20 10:00 08/16/20 09:15 Polyethylene Glycol 3350 17 Gm Powder PO Not Given QDAY JHONY Sodium Chloride 10 ml 08/10/20 22:00 08/16/20 09:04 Sodium Chloride 0.9% 10 Ml Flush Syringe IV 10 ml BID JHONY Administration Sodium Chloride 10 ml 08/10/20 21:38 Sodium Chloride 0.9% 10 Ml Flush Syringe IV PRN PRN LINE FLUSH Sodium Chloride 50 ml 08/13/20 21:00 08/15/20 22:45 Sodium Chloride 0.9% 50 Ml Ivpb IV 08/16/20 21:01 50 ml Q24HR@2100 JHONY Administration
--- NOTE | 2020-08-16 15:20 | Progress Note ---
Assessment and Plan Cultures: Blood culture 08/10/2020 no growth today SARS-CoV-2 PCR positive Assessment: 35-year-old female with morbid obesity, hypertension, asthma, admitted on 08/10/2020 secondary to a week history of generalized malaise, body aches, cough and shortness of breath: #Sepsis: remains with high fever, secondary to COVID-19 infection. #Severe COVID-19 infection: Chest x-ray without any infiltrate however patient is morbidly obese limited technique. Inflammatory markers for COVID-19 elevated CRP 2.2, D-dimer 653, LDH 340, ferritin normal. Procalcitonin is low. #Acute respiratory failure: 4L. Likely due to COVID-19. #Elevated LFTs: Likely secondary to COVID-19. #Morbid obesity: Associated with worse outcomes #Neutropenia: Likely secondary to COVID-19 infection. Improving. Recommendations: -Continue dexamethasone 6 mg IV/PO daily for 10 days -Continue remdesivir for 5 days D5 of 5 -Monitor inflammatory markers - ferritin, Ddimer, CRP, LDH q48-72 hours -Monitor liver function test on Remdesivir -Continue anticoagulation per System Protocol -Prone positioning as possible -Recommend 6MWT test prior to discharge. Stacy Low MD [facility] O: [phone] F: [phone] Subjective Date of service: 08/16/20 Principal diagnosis: COVID Interval history: Afebrile, no acute change present. On 14 L nasal cannula, worse from yesterday. Objective - Exam Narrative Exam: Physical exam deferred to reduce risk of transmission of COVID-19. Please refer to primary team's note. - Constitutional Vitals: Vital Signs Temp Pulse Resp BP Pulse Ox 98.2 F 73 22 120/79 94 08/16/20 11:27 08/16/20 11:27 08/16/20 11:27 08/16/20 11:27 08/16/20 14:40 Temperature -Last 24 Hours Temperature 98.2 F Temperature 98.1 F Temperature 98.6 F Temperature 98.3 F - Labs CBC & Chem 7: 08/14/20 06:47 08/16/20 06:58 Labs: Abnormal lab results 08/16/20 Range/Units 06:58 Glucose 110 H (65-100) mg/dL AST 64 H (5-40) units/L ALT 80 H (7-56) units/L Total Protein 5.9 L (6.3-8.2) g/dL Albumin 3.5 L (3.9-5) g/dL
[2020-08-16] MEDS: dexAMETHasone 4 MG/ML VIAL IV SCH (17:17)
[2020-08-16] MEDS: ONDANSETRON 4 MG/2 ML INJ IV PRN (17:26)
[2020-08-16] MEDS: SODIUM CHLORIDE 0.9% 50 ML IVPB IV SCH (21:50)
[2020-08-16] MEDS: REMDESIVIR 100 MG in SODIUM CHLORIDE 0.9% 250ML 250 ML IV SCH (21:50)
[2020-08-16] MEDS ORDERED: diphenhydrAMINE 50 MG/ML VIAL IV ONE (23:16)
[2020-08-17] MEDS ORDERED: diphenhydrAMINE 25 MG CAP PO ONE (00:15)
[2020-08-17] MEDS: guaiFENesin DM 200/20 MG ORAL LIQD 10 ML PO SCH ×3 (05:17→11:00)
[2020-08-17 05:34] VITALS: BP 120/76
[2020-08-17] MEDS: BENZONATATE 100 MG CAP PO SCH ×2 (06:19→14:43)
[2020-08-17] MEDS: PANTOPRAZOLE 40 MG TAB PO SCH (07:30)
[2020-08-17] MEDS: CHOLECALCIFEROL (VIT D3) 1000 UNIT (25 mcg) TAB PO SCH (09:30)
[2020-08-17] MEDS: ENOXAPARIN 30 MG/0.3 ML INJ SUB-Q SCH (09:30)
[2020-08-17] MEDS: carvediloL 3.125 MG TAB PO SCH (09:30)
[2020-08-17] MEDS: ASCORBIC ACID 500 MG TAB PO SCH (09:30)
[2020-08-17] MEDS: POLYETHYLENE GLYCOL 3350 17 GM POWDER PO SCH (09:31)
--- NOTE | 2020-08-17 10:47 | Discharge Summary ---
Providers - Providers Date of Admission: 08/10/20 18:34 Attending physician: ANTONIETA CH MD 08/11/20 09:17 Consult to Physician [CONS] Routine Comment: Consulting Provider: HIEU MARES Physician Instructions: Reason For Exam: covid/ leucopenia 08/16/20 12:45 Consult to Case Management [CONS] Routine Services Needed at Discharge: Horse Riding Coach Or Instructor Notified:: no Additional Physician Instructions: placement Primary care physician: FOREST FIRE SPECIALIST SUPERVISOR Hospitalization Reason for admission: sepsis Condition: Stable Hospital course: 35-year-old female with past medical history of hypertension and asthma comes to the emergency room because of nausea vomiting body aches and fever for the last 3 to 4 days. Patient went to [place] emergency department and was treated as upper respiratory symptoms with antibiotics. Patient was stable tested for COVID-19 which became positive later. Here the patient presents with a fever of 103 and she took Tylenol, a few hours before arrival in the emergency room. She took ibuprofen yesterday. No recent travels. Patient is not vaccinated. Exposure to coronavirus present. In the emergency room patient is to 88% on ambulation. No chest pain. Some shortness of breath present. No diaphoresis. Covid test came positive about days ago. 08/11 patient is alert and oriented, not in any distress, no specific complaints except dry cough, fever trending down and she is afebrile this morning, denies shortness of breath, denies headache, dizziness, chest pain, nausea or abdominal pain. Lab results reviewed 08/12 patient is alert and oriented, not in any acute distress, complains of persistent cough mostly dry, denies fever or chills, (has a low-grade fever ), denies shortness of breath or chest pain lab results reviewed. 08/13 alert and oriented and not in any distress, feeling better, states cough is better today, denies chest pain or shortness of breath or fever or chills ID note reviewed 08/14/2020 Patient on 4 L nasal cannula oxygen Otherwise comfortable 08/15/2020 Patient more comfortable on 4 L nasal cannula oxygen Takes oxygen off sometimes Will get a walk test tomorrow and possible discharge 08/16: Seen and examined this morning she reports that she still has persistent cough she denies worsening shortness of breath. But still short of breath at rest. She tells me elaborate story about her being from [place] and does not have anywhere to go when she leaves the hospital last she is required to isolate for 2 weeks prior to returning to [place]. Case management was consulted I discussed with nursing staff to obtain a home O2 evaluation but she is refusing. 08/17 patient doing well this morning, still with some cough, recommended continue supportive care, at home, social distancing guideline and get he vaccine once recovered (1) Sepsis Current Visit: Yes Status: Acute Plan to address problem: with high fever, secondary to COVID-19 infection. (2) Respiratory failure with hypoxia Current Visit: Yes Status: Acute Qualifiers: Chronicity: acute Qualified Code(s): J96.01 - Acute respiratory failure with hypoxia Plan to address problem: Patient 4 L nasal cannula oxygen Getting better We will try to do oxygen saturations on room air and walk test tomorrow If normal will discharge the patient home (3) COVID-19 Current Visit: Yes Status: Acute Plan to address problem: Coronavirus PCR is positive On IV dexamethasone and remdesivir Remdesivir day 4 of day 5 (4) Viral syndrome Current Visit: Yes Status: Acute Plan to address problem: Symptomatic treatment (5) Hypertension Current Visit: Yes Status: Chronic Qualifiers: Hypertension type: primary hypertension Qualified Code(s): I10 - Essential (primary) hypertension Plan to address problem: Continue antihypertensives and adjust medications as necessary (6) Asthma Current Visit: Yes Status: Inactive Plan to address problem: Bronchodilators as necessary Disposition: - TO HOME OR SELFCARE Final Discharge Diagnosis (Prints w/discharge instructions): COVID 19 PNEUMONIA Time spent for discharge: 35 mins Core Measure Documentation - Palliative Care Palliative Care/ Comfort Measures: Not Applicable - Core Measures Any of the following diagnoses?: none Exam - Physical Exam Narrative exam: VITAL SIGNS: Reviewed. GENERAL: The patient appears normally developed, morbidly obese vital signs as documented. HEAD: No signs of head trauma. EYES: Pupils are equal. Extraocular motions intact. EARS: Hearing grossly intact. MOUTH: Oropharynx is normal. NECK: No adenopathy, no JVD. CHEST: Chest with crackles at the base breath sounds bilaterally. No wheezes. CARDIAC: Regular rate and rhythm. S1 and S2, without murmurs, gallops, or rubs. VASCULAR: No Edema. Peripheral pulses normal and equal in all extremities. ABDOMEN: Soft, non tender and non distended. No rebound or guarding, and no masses palpated. Bowel Sounds normal. MUSCULOSKELETAL: Good range of motion of all major joints. Extremities without clubbing, cyanosis or edema. NEUROLOGIC EXAM: Alert and oriented x 3 No focal sensory or strength deficits. Speech normal. Follows commands. PSYCHIATRIC: Mood normal. SKIN: detail exam as documented in skin assessment - Constitutional Vitals: Temp Pulse Resp BP Pulse Ox 97.9 F 57 L 16 120/76 100 08/17/20 04:16 08/17/20 04:16 08/17/20 04:16 08/17/20 04:16 08/17/20 04:16 Plan Activity: advance as tolerated, fall precautions Diet: low fat Special Instructions: record daily weights, record daily BP diary, home oxygen via (nasal cannula @ 2 liters per minute), other (Encourage weight loss) Plan of Treatment: please continue to wear your mask and social distance for 8 more days Follow up with: PRIMARY CARE, [Primary Care Provider] - 3-5 Days MONTSERRAT MULLIGAN MD [Staff Physician] - 7 Days Prescriptions: carvediloL [Coreg] 3.125 mg PO BID #60 tablet guaiFENesin DM [Guaifenesin Dm Syrup] 10 ml PO Q6H 10 Days oral.liqd predniSONE 40 mg PO QDAY #12 tab Pantoprazole [Protonix TAB] 40 mg PO QDAC #20 tablet Benzonatate [Tessalon Perles] 200 mg PO Q8HR #30 capsule
--- NOTE | 2020-08-17 14:16 | Progress Note ---
Assessment and Plan Cultures: Blood culture 08/10/2020 no growth today SARS-CoV-2 PCR positive Assessment: 35-year-old female with morbid obesity, hypertension, asthma, admitted on 08/10/2020 secondary to a week history of generalized malaise, body aches, cough and shortness of breath: #Sepsis: remains with high fever, secondary to COVID-19 infection. #Severe COVID-19 infection: Chest x-ray without any infiltrate however patient is morbidly obese limited technique. Inflammatory markers for COVID-19 elevated CRP 2.2, D-dimer 653, LDH 340, ferritin normal. Procalcitonin is low. #Acute respiratory failure: 4L. Likely due to COVID-19. #Elevated LFTs: Likely secondary to COVID-19. #Morbid obesity: Associated with worse outcomes #Neutropenia: Likely secondary to COVID-19 infection. Improving. Recommendations: -Continue dexamethasone 6 mg IV/PO daily for 10 days -Completed Remdesivir -Monitor inflammatory markers - ferritin, Ddimer, CRP, LDH q48-72 hours -Monitor liver function test on Remdesivir -Continue anticoagulation per System Protocol -Prone positioning as possible -Recommend 6MWT test prior to discharge. Stacy Low MD [facility] O: [phone] F: [phone] Subjective Date of service: 08/17/20 Principal diagnosis: COVID Interval history: Afebrile, on 2 L nasal cannula. No acute change. Objective - Exam Narrative Exam: Physical exam deferred to reduce risk of transmission of COVID-19. Please refer to primary team's note. - Constitutional Vitals: Vital Signs Temp Pulse Resp BP Pulse Ox 97.9 F 57 L 16 120/76 100 08/17/20 04:16 08/17/20 04:16 08/17/20 04:16 08/17/20 04:16 08/17/20 04:16 Temperature -Last 24 Hours Temperature 97.9 F Temperature 98.9 F Temperature 98.1 F - Labs CBC & Chem 7: 08/14/20 06:47 08/16/20 06:58
== END 2020-08-17 16:20 | disposition home or self-care (01) | DRG 177 ==
LOC: ED 12:45 → 3A 18:34
PROVIDERS: ADMIT Internal Medicine; ATTEND Internal Medicine
PROC: XW033E5 Introduction of Remdesivir Anti-infective into Peripheral Vein, Percutaneous Approach, New Technology Group 5 (ICD-10-PCS; principal; 2020-08-12)
DX: U07.1 COVID-19 (principal); A41.89 Other specified sepsis; J96.01 Acute respiratory failure with hypoxia; E87.1 Hypo-osmolality and hyponatremia; Z68.43 Body mass index [BMI] 50.0-59.9, adult; B34.9 Viral infection, unspecified; D70.9 Neutropenia, unspecified; E66.01 Morbid (severe) obesity due to excess calories; I10 Essential (primary) hypertension; J45.909 Unspecified asthma, uncomplicated; Z82.49 Family history of ischemic heart disease and other diseases of the circulatory system; Z88.5 Allergy status to narcotic agent; Z88.6 Allergy status to analgesic agent; Z88.8 Allergy status to other drugs, medicaments and biological substances; Z71.3 Dietary counseling and surveillance; Z79.899 Other long term (current) drug therapy
CPT/HCPCS: 36415; 74022; 80048; 80053; 81001; 82728; 82947; 83036; 83615; 83690; 84145; 84484; 84703; 85007; 85025; 85027; 85379; 86140; 87040; 93005; 94640; 96374; 96375; G0378; J0456; J0696; J1100; J1650; J1885; J2405; J2765; J7030; J7050; U0003